=== PATIENT | female | born 1965 | race Caucasian/White ===

== ENCOUNTER → 2016-12-17 | Outpatient (REF) | payer BC ==
[~2016-12-17] MED LIST: AMIT10TA PO; AMLO10TA2 PO; ASPI325T PO; COZA50TA PO; CYCL10TA PO; HYDR-3910 PO; HYDR25TAB PO; LOPR1TAB6 PO; LOSA100T36 PO; PROZ10CA7 PO
[2016-12-17 19:13] LABS: FREE T4 1.02 NG/DL (0.76-1.46)
== END ==
LOC: M LAB REF 17:12
PROVIDERS: ATTEND Internal Medicine Nephrology
DX: N18.4 Chronic kidney disease, stage 4 (severe) (principal)

== ENCOUNTER → 2017-02-19 | Outpatient (CLI) | payer BC ==
[2017-02-19 14:02] LABS: BASO # 0.1 10^3/uL (0.0-0.2); BASO % 0.8 % (0.0-1.0); EOS # 0.5 10^3/uL (0.0-0.50); EOS % 5.6 % (0.0-3.0); IMMATURE GRANULOCYTE % 0.2 % (0-0); LYMPH # 1.4 10^3/uL (1.5-4.5); LYMPH % 16.7 % (24.0-44.0); MEAN CORPUSCULAR HEMOGLOBIN 32.6 pg (27.0-33.0); MEAN CORPUSCULAR HGB CONC 34.2 g/dl (32.0-36.5); MEAN CORPUSCULAR VOLUME 95.4 fl (80.0-96.0); MONO # 0.8 10^3/uL (0.0-0.8); MONO % 9.7 % (0.0-5.0); NEUTROPHILS # 5.5 10^3/uL (1.8-7.7); PLATELET COUNT, AUTOMATED 171 10^3/uL (150-450); RED CELL DISTRIBUTION WIDTH 11.5 % (11.5-14.5); WHITE BLOOD COUNT 8.3 10^3/uL (4.0-10.0)
[2017-02-19 14:11] LABS: ALBUMIN 3.8 GM/DL (3.2-5.2); CALCIUM LEVEL 9.1 MG/DL (8.5-10.1); CREATININE FOR GFR 2.29 MG/DL (0.55-1.02); GLOMERULAR FILTRATION RATE 23.8 (>51); MAGNESIUM LEVEL 2.1 MG/DL (1.8-2.4)
[2017-02-19 14:21] LABS: POTASSIUM SERUM 5.4 MEQ/L (3.5-5.1)
== END ==
LOC: M SMT 09:26
PROVIDERS: ATTEND Internal Medicine Nephrology
DX: N18.4 Chronic kidney disease, stage 4 (severe) (principal); N25.81 Secondary hyperparathyroidism of renal origin

== ENCOUNTER → 2017-07-19 | Outpatient (REF) | payer BC ==
[2017-07-19 14:39] LABS: FERRITIN 32 NG/ML (8-252); IRON (FE) 44 UG/DL (50-170); PERCENT SATURATION 14.1 % (13.2-45.0); TOTAL IRON BINDING CAPACITY 311 UG/DL (250-450)
== END ==
LOC: M LAB REF 13:23
DX: D64.9 Anemia, unspecified (principal)
CPT/HCPCS: 83550

== ENCOUNTER → 2017-09-15 | Outpatient (REF) | payer BC ==
[2017-09-15 18:52] LABS: CHOLESTEROL LEVEL 167 MG/DL (<200); CHOLESTEROL RISK RATIO 3.976 (<5); HDL CHOLESTEROL 42 MG/DL (>40); NON-HDL-C 125 MG/DL; TRIGLYCERIDES LEVEL 110 MG/DL (<150)
== END ==
LOC: M LAB REF 17:33
DX: N18.4 Chronic kidney disease, stage 4 (severe) (principal)
CPT/HCPCS: 80061

== ENCOUNTER 2017-10-13 11:09 | Inpatient (IN) | payer BC ==
[2017-10-13] MEDS ORDERED: LIDOCAINE 2% MDV 20 ML VIAL As Ordered (11:35)
[2017-10-13] MEDS ORDERED: HEPARIN 1,000 UNITS/ML 10ML VIAL (FOR RADIOLOGY& DIALYSIS ONLY) As Ordered (11:35)
[2017-10-13] MEDS ORDERED: ISOVUE-300 61% 50ML VIAL (Q9967) As Ordered (12:13)
[2017-10-13 12:56] LABS: HEMATOCRIT 25.7 % (36.0-47.0); HEMOGLOBIN 8.8 g/dl (12.0-15.5); MEAN CORPUSCULAR HEMOGLOBIN 29.9 pg (27.0-33.0); MEAN CORPUSCULAR HGB CONC 34.2 g/dl (32.0-36.5); MEAN CORPUSCULAR VOLUME 87.4 fl (80.0-96.0); PLATELET COUNT, AUTOMATED 126 10^3/uL (150-450); RED BLOOD COUNT 2.94 10^6/uL (4.00-5.40); RED CELL DISTRIBUTION WIDTH 12.7 % (11.5-14.5); WHITE BLOOD COUNT 9.4 10^3/uL (4.0-10.0)
[2017-10-13 13:07] LABS: INR 1.27; PROTHROMBIN TIME 16.2 SECONDS (12.4-14.5)
[2017-10-13 13:08] LABS: PARTIAL THROMBOPLASTIN TIME 49.1 SECONDS (26.8-37.9)
[2017-10-13 13:18] LABS: ALBUMIN 3.3 GM/DL (3.2-5.2); ALBUMIN/GLOBULIN RATIO 1.03 (1.00-1.93); ALKALINE PHOSPHATASE 61 U/L (45-117); ALT/SGPT 21 U/L (12-78); ANION GAP 15 MEQ/L (8-16); AST/SGOT 9 U/L (7-37); BILIRUBIN,TOTAL 0.4 MG/DL (0.2-1.0); BLOOD UREA NITROGEN 112 MG/DL (7-18); CALCIUM LEVEL 8.6 MG/DL (8.5-10.1); CARBON DIOXIDE LEVEL 20 MEQ/L (21-32); CHLORIDE LEVEL 88 MEQ/L (98-107); GLOMERULAR FILTRATION RATE 3.6 (>51); GLUCOSE, FASTING 99 MG/DL (70-100); SODIUM LEVEL 123 MEQ/L (136-145); TOTAL PROTEIN 6.5 GM/DL (6.4-8.2)
[2017-10-13 13:33] LABS: POTASSIUM SERUM 6.1 MEQ/L (3.5-5.1)
[2017-10-13] MEDS: DEXTROSE 50% 50 ML SYRINGE IV (14:25)
[2017-10-13] MEDS: HumuLIN R (REGULAR) INSULIN (NovoLIN R) **100U/ML** PER UNIT SC (14:25)
[2017-10-13] MEDS: NS 1,000 ML IV (14:26)
[2017-10-13] MEDS ORDERED: IPRATROPIUM 0.5MG/ALBUTEROL 2.5MG INH SOL UD 3ML (DUONEB)(J7620) NEB (14:30)
[2017-10-13 14:38] LABS: FREE THYROXINE INDEX 2.2 % (1.3-4.8); T UPTAKE 36 % (30-39); THYROID STIMULATING HORMONE 0.529 uIU/ML (0.358-3.740); THYROXINE (T4) 6.2 UG/DL (4.5-12.0)
[2017-10-13] MEDS: ALBUTEROL SULFATE 2.5 MG/0.5 ML INH NEB SOLN NEB (14:48)
[2017-10-13] MEDS: ASPIRIN ENTERIC 325 MG TAB PO (15:44)
[2017-10-13] MEDS: FLUoxetine 10 MG CAP PO (15:45)
[2017-10-13] MEDS: CLOPIDOGREL 75 MG TAB PO (15:45)
[2017-10-13] MEDS: amLODIPine 10 MG TAB PO (15:45)
[2017-10-13] MEDS: D5W 1,000 ML IV (16:00)
[2017-10-13 16:09] LABS: OSMOLALITY SERUM 290 MOSM/KG (275-295)
[2017-10-13] MEDS: CALCIUM GLUCONATE 1,000 MG in NS 100 ML IV (17:46)
[2017-10-13] MEDS: HEPARIN 1,000 UNITS/ML 10ML VIAL (FOR RADIOLOGY& DIALYSIS ONLY) XX (18:20)
[2017-10-13] MEDS: ADVAIR HFA 230/21MCG INHALER INH (19:56)
[2017-10-13] MEDS: IPRATROPIUM 0.5MG/ALBUTEROL 2.5MG INH SOL UD 3ML (DUONEB)(J7620) NEB (19:58)
[2017-10-13 20:30] LABS: ANION GAP 10 MEQ/L (8-16); BLOOD UREA NITROGEN 75 MG/DL (7-18); CALCIUM LEVEL 8.2 MG/DL (8.5-10.1); CARBON DIOXIDE LEVEL 21 MEQ/L (21-32); CHLORIDE LEVEL 95 MEQ/L (98-107); GLOMERULAR FILTRATION RATE 5.2 (>51); GLUCOSE, FASTING 79 MG/DL (70-100); POTASSIUM SERUM 4.5 MEQ/L (3.5-5.1); SODIUM LEVEL 126 MEQ/L (136-145)
[2017-10-13] MEDS: NORTRIPTYLINE 25 MG CAP PO (20:44)
[2017-10-13] MEDS: LABETALOL 200 MG TAB PO (20:45)
[2017-10-13] MEDS: **hydrALAZINE** 50 MG TAB PO (20:46)
[2017-10-13 20:56] LABS: CREATININE FOR GFR 8.62 MG/DL (0.55-1.30)
[2017-10-13] MEDS ORDERED: LABETALOL 100 MG TAB PO (21:00)
[2017-10-13 22:08] LABS: ABG BASE EXCESS -5.1 (-2.0-2.0); ABG HCO3 19.8 MEQ/L (22.0-26.0); ABG O2 SATURATION 92.3 % (95.0-99.0); ABG PARTIAL PRESSURE CO2 35.9 mmHg (35.0-45.0); ABG PARTIAL PRESSURE O2 65.9 mmHg (75.0-100.0); ABG STANDARD HCO3 20.1 MEQ/L (22.0-26.0); ABG TOTAL CO2 20.9 MEQ/L (22.0-29.0); ABG pH (ARTERIAL) 7.359 UNITS (7.350-7.450)
[2017-10-13 22:39] LABS: ANION GAP 14 MEQ/L (8-16); BLOOD UREA NITROGEN 74 MG/DL (7-18); CARBON DIOXIDE LEVEL 21 MEQ/L (21-32); CHLORIDE LEVEL 94 MEQ/L (98-107); GLUCOSE, FASTING 95 MG/DL (70-100); POTASSIUM SERUM 4.6 MEQ/L (3.5-5.1); SODIUM LEVEL 129 MEQ/L (136-145)
[2017-10-13 22:42] LABS: LACTIC ACID SEPSIS PROTOCOL 0.6 MMOL/L (0.4-2.0)
[2017-10-13 22:54] LABS: CREATININE FOR GFR 8.83 MG/DL (0.55-1.30)
[2017-10-13] MEDS: ACETAMINOPHEN TAB 650MG DOSE (2X325MG) PO (23:08)
[2017-10-14] MEDS: methylPREDNISolone INJ 40 MG/1 ML VIAL (J2920) IV (00:45)
[2017-10-14] MEDS: diphenhydrAMINE INJ 50MG/ML VIAL (J1200) IV (00:51)
[2017-10-14 01:22] LABS: ANION GAP 13 MEQ/L (8-16); BLOOD UREA NITROGEN 76 MG/DL (7-18); CARBON DIOXIDE LEVEL 21 MEQ/L (21-32); CHLORIDE LEVEL 95 MEQ/L (98-107); GLOMERULAR FILTRATION RATE 4.8 (>51); GLUCOSE, FASTING 97 MG/DL (70-100); POTASSIUM SERUM 4.8 MEQ/L (3.5-5.1); SODIUM LEVEL 129 MEQ/L (136-145)
[2017-10-14 01:45] LABS: CREATININE FOR GFR 9.23 MG/DL (0.55-1.30)
[2017-10-14] MEDS: IPRATROPIUM 0.5MG/ALBUTEROL 2.5MG INH SOL UD 3ML (DUONEB)(J7620) NEB ×4 (01:53→19:43)
[2017-10-14] MEDS: MEROPENEM INJ 500 MG in APPROPRIATE DILUENT 1 EA IV ×2 (04:33→17:23)
[2017-10-14] MEDS: VANCOMYCIN HCL 1,000 MG, VIAL MATE ADAPTER 1 EACH in D5W 250 ML IV (05:11)
[2017-10-14 05:31] LABS: HEMATOCRIT 25.3 % (36.0-47.0); HEMOGLOBIN 8.5 g/dl (12.0-15.5); MEAN CORPUSCULAR HEMOGLOBIN 29.7 pg (27.0-33.0); MEAN CORPUSCULAR HGB CONC 33.6 g/dl (32.0-36.5); MEAN CORPUSCULAR VOLUME 88.5 fl (80.0-96.0); PLATELET COUNT, AUTOMATED 113 10^3/uL (150-450); RED BLOOD COUNT 2.86 10^6/uL (4.00-5.40); RED CELL DISTRIBUTION WIDTH 12.7 % (11.5-14.5); WHITE BLOOD COUNT 8.4 10^3/uL (4.0-10.0)
[2017-10-14 05:56] LABS: ALBUMIN 3.1 GM/DL (3.2-5.2); ALBUMIN/GLOBULIN RATIO 1.03 (1.00-1.93); ALKALINE PHOSPHATASE 58 U/L (45-117); ALT/SGPT 33 U/L (12-78); ANION GAP 16 MEQ/L (8-16); AST/SGOT 32 U/L (7-37); BILIRUBIN,TOTAL 0.5 MG/DL (0.2-1.0); BLOOD UREA NITROGEN 77 MG/DL (7-18); CALCIUM LEVEL 7.8 MG/DL (8.5-10.1); CARBON DIOXIDE LEVEL 18 MEQ/L (21-32); CHLORIDE LEVEL 94 MEQ/L (98-107); GLOMERULAR FILTRATION RATE 4.7 (>51); GLUCOSE, FASTING 97 MG/DL (70-100); MAGNESIUM LEVEL 2.2 MG/DL (1.8-2.4); SODIUM LEVEL 128 MEQ/L (136-145); TOTAL PROTEIN 6.1 GM/DL (6.4-8.2)
[2017-10-14 06:01] LABS: POTASSIUM SERUM 5.4 MEQ/L (3.5-5.1)
[2017-10-14 07:04] LABS: OSMOLALITY SERUM 285 MOSM/KG (275-295)
[2017-10-14] MEDS: FLUoxetine 10 MG CAP PO (08:35)
[2017-10-14] MEDS: amLODIPine 10 MG TAB PO (08:35)
[2017-10-14] MEDS: CLOPIDOGREL 75 MG TAB PO (08:36)
[2017-10-14] MEDS: ASPIRIN ENTERIC 325 MG TAB PO (08:36)
[2017-10-14] MEDS: **hydrALAZINE** 50 MG TAB PO ×2 (08:36→20:32)
[2017-10-14] MEDS: ADVAIR HFA 230/21MCG INHALER INH ×2 (08:47→19:44)
[2017-10-14] MEDS: LABETALOL 200 MG TAB PO ×2 (09:33→20:33)
[2017-10-14] MEDS: HEPARIN 1,000 UNITS/ML 10ML VIAL (FOR RADIOLOGY& DIALYSIS ONLY) XX (12:15)
[2017-10-14] MEDS: **VANCO AFTER HD** MISC XX (16:00)
[2017-10-14] MEDS: ACETAMINOPHEN TAB 650MG DOSE (2X325MG) PO (16:21)
[2017-10-14] MEDS: cloNIDine HCL 0.3 MG/24 HR PATCH TOP (20:59)
[2017-10-15] MEDS: IPRATROPIUM 0.5MG/ALBUTEROL 2.5MG INH SOL UD 3ML (DUONEB)(J7620) NEB ×4 (01:14→20:00)
[2017-10-15 05:11] LABS: HEMATOCRIT 24.5 % (36.0-47.0); HEMOGLOBIN 8.2 g/dl (12.0-15.5); MEAN CORPUSCULAR HEMOGLOBIN 29.4 pg (27.0-33.0); MEAN CORPUSCULAR HGB CONC 33.5 g/dl (32.0-36.5); MEAN CORPUSCULAR VOLUME 87.8 fl (80.0-96.0); PLATELET COUNT, AUTOMATED 123 10^3/uL (150-450); RED BLOOD COUNT 2.79 10^6/uL (4.00-5.40); RED CELL DISTRIBUTION WIDTH 12.9 % (11.5-14.5); WHITE BLOOD COUNT 11.1 10^3/uL (4.0-10.0)
[2017-10-15 05:14] LABS: ALBUMIN 2.9 GM/DL (3.2-5.2); ALBUMIN/GLOBULIN RATIO 0.97 (1.00-1.93); ALKALINE PHOSPHATASE 59 U/L (45-117); ALT/SGPT 32 U/L (12-78); ANION GAP 13 MEQ/L (8-16); AST/SGOT 23 U/L (7-37); BILIRUBIN,TOTAL 0.5 MG/DL (0.2-1.0); BLOOD UREA NITROGEN 51 MG/DL (7-18); CALCIUM LEVEL 7.7 MG/DL (8.5-10.1); CARBON DIOXIDE LEVEL 23 MEQ/L (21-32); CHLORIDE LEVEL 96 MEQ/L (98-107); CREATININE FOR GFR 7.23 MG/DL (0.55-1.30); GLOMERULAR FILTRATION RATE 6.3 (>51); GLUCOSE, FASTING 102 MG/DL (70-100); MAGNESIUM LEVEL 2.2 MG/DL (1.8-2.4); POTASSIUM SERUM 4.2 MEQ/L (3.5-5.1); SODIUM LEVEL 132 MEQ/L (136-145); TOTAL PROTEIN 5.9 GM/DL (6.4-8.2); VANCOMYCIN RANDOM 25.6 UG/ML
[2017-10-15 05:22] LABS: FERRITIN 72 NG/ML (8-252); IRON (FE) 18 UG/DL (50-170); PERCENT SATURATION 6.6 % (13.2-45.0); TOTAL IRON BINDING CAPACITY 273 UG/DL (250-450)
[2017-10-15] MEDS: ADVAIR HFA 230/21MCG INHALER INH ×2 (07:50→20:56)
[2017-10-15] MEDS: amLODIPine 10 MG TAB PO (08:00)
[2017-10-15] MEDS: CLOPIDOGREL 75 MG TAB PO (08:00)
[2017-10-15] MEDS: LABETALOL 200 MG TAB PO ×2 (08:01→21:01)
[2017-10-15] MEDS: ASPIRIN ENTERIC 325 MG TAB PO (08:01)
[2017-10-15] MEDS: **hydrALAZINE** 50 MG TAB PO ×2 (08:01→17:58)
[2017-10-15] MEDS: FLUoxetine 10 MG CAP PO (08:02)
[2017-10-15] MEDS: FUROSEMIDE 100 MG/10 ML VIAL (J1940) IV (09:30)
[2017-10-15 11:21] LABS: HEPATITIS B SURFACE ANTIGEN NEGATIVE (NEGATIVE)
[2017-10-15 11:50] LABS: HEPATITIS B CORE ANTIBODY IGM NEGATIVE (NEGATIVE); HEPATITIS C VIRUS ABY INDEX < 0.0 INDEX (<0.8)
[2017-10-15 11:59] LABS: HEPATITIS B SURFACE ANTIBODY NEGATIVE (POSITIVE)
[2017-10-15] MEDS: MEROPENEM INJ 500 MG in APPROPRIATE DILUENT 1 EA IV (17:31)
[2017-10-15] MEDS: **VANCO AFTER HD** MISC XX (18:32)
[2017-10-15] MEDS: VANCOMYCIN HCL 750 MG, VIAL MATE ADAPTER 1 EACH in D5W 250 ML IV (18:32)
[2017-10-15] MEDS: ACETAMINOPHEN TAB 650MG DOSE (2X325MG) PO (19:47)
[2017-10-15] MEDS ORDERED: IRON SUCROSE 100MG 5ML VIAL (J1756 PER 1MG) IV (23:15)
[2017-10-15] MEDS ORDERED: DARBEPOETIN 100 MCG/0.5 ML *DIALYSIS* SYRINGE (J0882) IV (23:15)
[2017-10-16] MEDS: IPRATROPIUM 0.5MG/ALBUTEROL 2.5MG INH SOL UD 3ML (DUONEB)(J7620) NEB ×4 (02:55→20:00)
[2017-10-16 05:04] LABS: HEMATOCRIT 24.6 % (36.0-47.0); HEMOGLOBIN 8.2 g/dl (12.0-15.5); MEAN CORPUSCULAR HEMOGLOBIN 29.4 pg (27.0-33.0); MEAN CORPUSCULAR HGB CONC 33.3 g/dl (32.0-36.5); MEAN CORPUSCULAR VOLUME 88.2 fl (80.0-96.0); PLATELET COUNT, AUTOMATED 128 10^3/uL (150-450); RED BLOOD COUNT 2.79 10^6/uL (4.00-5.40); RED CELL DISTRIBUTION WIDTH 12.9 % (11.5-14.5); WHITE BLOOD COUNT 12.1 10^3/uL (4.0-10.0)
[2017-10-16 05:25] LABS: ALBUMIN 2.7 GM/DL (3.2-5.2); ALBUMIN/GLOBULIN RATIO 0.84 (1.00-1.93); ALKALINE PHOSPHATASE 55 U/L (45-117); ALT/SGPT 30 U/L (12-78); ANION GAP 11 MEQ/L (8-16); AST/SGOT 17 U/L (7-37); BILIRUBIN,TOTAL 0.5 MG/DL (0.2-1.0); BLOOD UREA NITROGEN 32 MG/DL (7-18); CARBON DIOXIDE LEVEL 26 MEQ/L (21-32); CHLORIDE LEVEL 97 MEQ/L (98-107); CREATININE FOR GFR 5.21 MG/DL (0.55-1.30); GLOMERULAR FILTRATION RATE 9.2 (>51); GLUCOSE, FASTING 118 MG/DL (70-100); MAGNESIUM LEVEL 2.1 MG/DL (1.8-2.4); POTASSIUM SERUM 3.9 MEQ/L (3.5-5.1); SODIUM LEVEL 134 MEQ/L (136-145); TOTAL PROTEIN 5.9 GM/DL (6.4-8.2); VANCOMYCIN RANDOM 31.4 UG/ML
[2017-10-16] MEDS: **hydrALAZINE** 50 MG TAB PO ×3 (06:43→21:58)
[2017-10-16] MEDS: ADVAIR HFA 230/21MCG INHALER INH ×2 (07:48→20:57)
[2017-10-16] MEDS: amLODIPine 10 MG TAB PO (08:01)
[2017-10-16] MEDS: CLOPIDOGREL 75 MG TAB PO (08:01)
[2017-10-16] MEDS: FLUoxetine 10 MG CAP PO (08:01)
[2017-10-16] MEDS: ASPIRIN ENTERIC 325 MG TAB PO (08:01)
[2017-10-16] MEDS: LABETALOL 200 MG TAB PO ×2 (08:02→21:58)
[2017-10-16 08:06] LABS: HEPATITIS B CORE ANTIBODY IGG Negative (Negative)
[2017-10-16] MEDS ORDERED: ISOVUE-370 76% 100ML VIAL (Q9967) As Ordered (11:34)
[2017-10-16] MEDS: HEPARIN 1,000 UNITS/ML 10ML VIAL (FOR RADIOLOGY& DIALYSIS ONLY) IV (14:00)
[2017-10-16] MEDS: MEROPENEM INJ 500 MG in APPROPRIATE DILUENT 1 EA IV (18:00)
[2017-10-16] MEDS: ACETAMINOPHEN TAB 650MG DOSE (2X325MG) PO (19:14)
[2017-10-17] MEDS: IPRATROPIUM 0.5MG/ALBUTEROL 2.5MG INH SOL UD 3ML (DUONEB)(J7620) NEB ×4 (01:40→20:00)
[2017-10-17 06:14] LABS: HEMATOCRIT 25.1 % (36.0-47.0); HEMOGLOBIN 8.4 g/dl (12.0-15.5); MEAN CORPUSCULAR HEMOGLOBIN 30.1 pg (27.0-33.0); MEAN CORPUSCULAR HGB CONC 33.5 g/dl (32.0-36.5); PLATELET COUNT, AUTOMATED 126 10^3/uL (150-450); RED BLOOD COUNT 2.79 10^6/uL (4.00-5.40); RED CELL DISTRIBUTION WIDTH 12.9 % (11.5-14.5)
[2017-10-17] MEDS: amLODIPine 10 MG TAB PO (06:32)
[2017-10-17] MEDS: LABETALOL 200 MG TAB PO ×2 (06:32→20:54)
[2017-10-17] MEDS: **hydrALAZINE** 50 MG TAB PO ×3 (06:32→20:53)
[2017-10-17 06:42] LABS: ALBUMIN 2.7 GM/DL (3.2-5.2); ALBUMIN/GLOBULIN RATIO 0.93 (1.00-1.93); ALKALINE PHOSPHATASE 58 U/L (45-117); ALT/SGPT 28 U/L (12-78); ANION GAP 9 MEQ/L (8-16); AST/SGOT 15 U/L (7-37); BILIRUBIN,TOTAL 0.5 MG/DL (0.2-1.0); BLOOD UREA NITROGEN 22 MG/DL (7-18); CALCIUM LEVEL 8.5 MG/DL (8.5-10.1); CARBON DIOXIDE LEVEL 29 MEQ/L (21-32); CHLORIDE LEVEL 100 MEQ/L (98-107); CREATININE FOR GFR 3.38 MG/DL (0.55-1.30); GLOMERULAR FILTRATION RATE 15.2 (>51); GLUCOSE, FASTING 115 MG/DL (70-100); POTASSIUM SERUM 3.8 MEQ/L (3.5-5.1); SODIUM LEVEL 138 MEQ/L (136-145); TOTAL PROTEIN 5.6 GM/DL (6.4-8.2); VANCOMYCIN RANDOM 19.3 UG/ML
[2017-10-17] MEDS: ADVAIR HFA 230/21MCG INHALER INH ×2 (07:50→20:09)
[2017-10-17] MEDS: CLOPIDOGREL 75 MG TAB PO (08:33)
[2017-10-17] MEDS: ASPIRIN ENTERIC 325 MG TAB PO (08:33)
[2017-10-17] MEDS: FLUoxetine 10 MG CAP PO (08:33)
[2017-10-17] MEDS: VALSARTAN 80 MG TAB (DIOVAN) PO (10:24)
[2017-10-17] MEDS: **VANCO AFTER HD** MISC XX (15:46)
[2017-10-17] MEDS: MEROPENEM INJ 500 MG in APPROPRIATE DILUENT 1 EA IV (17:13)
[2017-10-18] MEDS: IPRATROPIUM 0.5MG/ALBUTEROL 2.5MG INH SOL UD 3ML (DUONEB)(J7620) NEB ×4 (02:00→20:00)
[2017-10-18 06:55] LABS: HEMATOCRIT 25.7 % (36.0-47.0); HEMOGLOBIN 8.5 g/dl (12.0-15.5); MEAN CORPUSCULAR HEMOGLOBIN 29.7 pg (27.0-33.0); MEAN CORPUSCULAR HGB CONC 33.1 g/dl (32.0-36.5); MEAN CORPUSCULAR VOLUME 89.9 fl (80.0-96.0); PLATELET COUNT, AUTOMATED 136 10^3/uL (150-450); RED BLOOD COUNT 2.86 10^6/uL (4.00-5.40); RED CELL DISTRIBUTION WIDTH 13.2 % (11.5-14.5); WHITE BLOOD COUNT 14.4 10^3/uL (4.0-10.0)
[2017-10-18 07:28] LABS: ALBUMIN 2.6 GM/DL (3.2-5.2); ALBUMIN/GLOBULIN RATIO 0.87 (1.00-1.93); ALKALINE PHOSPHATASE 58 U/L (45-117); ALT/SGPT 28 U/L (12-78); ANION GAP 8 MEQ/L (8-16); AST/SGOT 15 U/L (7-37); BILIRUBIN,TOTAL 0.5 MG/DL (0.2-1.0); BLOOD UREA NITROGEN 35 MG/DL (7-18); CALCIUM LEVEL 8.5 MG/DL (8.5-10.1); CARBON DIOXIDE LEVEL 27 MEQ/L (21-32); CHLORIDE LEVEL 101 MEQ/L (98-107); GLOMERULAR FILTRATION RATE 12.5 (>51); GLUCOSE, FASTING 106 MG/DL (70-100); MAGNESIUM LEVEL 1.8 MG/DL (1.8-2.4); POTASSIUM SERUM 3.8 MEQ/L (3.5-5.1); SODIUM LEVEL 136 MEQ/L (136-145); TOTAL PROTEIN 5.6 GM/DL (6.4-8.2)
[2017-10-18] MEDS: ADVAIR HFA 230/21MCG INHALER INH ×2 (07:42→21:40)
[2017-10-18] MEDS: LABETALOL 200 MG TAB PO ×2 (09:34→21:59)
[2017-10-18] MEDS: ASPIRIN ENTERIC 325 MG TAB PO (09:35)
[2017-10-18] MEDS: **hydrALAZINE** 50 MG TAB PO ×3 (09:35→22:00)
[2017-10-18] MEDS: FLUoxetine 10 MG CAP PO (09:35)
[2017-10-18] MEDS: amLODIPine 10 MG TAB PO (09:35)
[2017-10-18] MEDS: VALSARTAN 80 MG TAB (DIOVAN) PO (09:35)
[2017-10-18] MEDS: CLOPIDOGREL 75 MG TAB PO (09:35)
[2017-10-18] MEDS: **VANCO AFTER HD** MISC XX (11:12)
[2017-10-18] MEDS: MEROPENEM INJ 500 MG in APPROPRIATE DILUENT 1 EA IV (12:55)
[2017-10-19] MEDS: IPRATROPIUM 0.5MG/ALBUTEROL 2.5MG INH SOL UD 3ML (DUONEB)(J7620) NEB ×4 (02:00→19:52)
[2017-10-19] MEDS ORDERED: LIDOCAINE 2% MDV 20 ML VIAL As Ordered (06:22)
[2017-10-19] MEDS ORDERED: HEPARIN 1,000 UNITS/ML 10ML VIAL (FOR RADIOLOGY& DIALYSIS ONLY) As Ordered (06:22)
[2017-10-19 06:43] LABS: HEMATOCRIT 24.9 % (36.0-47.0); HEMOGLOBIN 8.4 g/dl (12.0-15.5); MEAN CORPUSCULAR HEMOGLOBIN 30.2 pg (27.0-33.0); MEAN CORPUSCULAR HGB CONC 33.7 g/dl (32.0-36.5); MEAN CORPUSCULAR VOLUME 89.6 fl (80.0-96.0); PLATELET COUNT, AUTOMATED 137 10^3/uL (150-450); RED BLOOD COUNT 2.78 10^6/uL (4.00-5.40); RED CELL DISTRIBUTION WIDTH 13.1 % (11.5-14.5); WHITE BLOOD COUNT 13.2 10^3/uL (4.0-10.0)
[2017-10-19 07:13] LABS: ALBUMIN 2.5 GM/DL (3.2-5.2); ALBUMIN/GLOBULIN RATIO 0.78 (1.00-1.93); ALKALINE PHOSPHATASE 59 U/L (45-117); ALT/SGPT 28 U/L (12-78); ANION GAP 10 MEQ/L (8-16); AST/SGOT 14 U/L (7-37); BILIRUBIN,TOTAL 0.5 MG/DL (0.2-1.0); BLOOD UREA NITROGEN 42 MG/DL (7-18); CALCIUM LEVEL 8.4 MG/DL (8.5-10.1); CARBON DIOXIDE LEVEL 27 MEQ/L (21-32); CHLORIDE LEVEL 98 MEQ/L (98-107); CREATININE FOR GFR 3.91 MG/DL (0.55-1.30); GLOMERULAR FILTRATION RATE 12.8 (>51); GLUCOSE, FASTING 104 MG/DL (70-100); MAGNESIUM LEVEL 1.6 MG/DL (1.8-2.4); POTASSIUM SERUM 3.8 MEQ/L (3.5-5.1); SODIUM LEVEL 135 MEQ/L (136-145); TOTAL PROTEIN 5.7 GM/DL (6.4-8.2)
[2017-10-19] MEDS ORDERED: ISOVUE-300 61% 50ML VIAL (Q9967) As Ordered (07:25)
[2017-10-19] MEDS ORDERED: MIDAZOLAM INJ 2 MG/2 ML VIAL (J2250) As Ordered (07:51)
[2017-10-19] MEDS ORDERED: fentaNYL 100 MCG/2 ML INJECTION (J3010) As Ordered (07:51)
[2017-10-19] MEDS: ADVAIR HFA 230/21MCG INHALER INH ×2 (08:00→19:53)
[2017-10-19] MEDS: LABETALOL 200 MG TAB PO ×2 (09:58→21:44)
[2017-10-19] MEDS: FLUoxetine 10 MG CAP PO (09:59)
[2017-10-19] MEDS: amLODIPine 10 MG TAB PO (09:59)
[2017-10-19] MEDS: ASPIRIN ENTERIC 325 MG TAB PO (09:59)
[2017-10-19] MEDS: CLOPIDOGREL 75 MG TAB PO (09:59)
[2017-10-19] MEDS: **hydrALAZINE** 50 MG TAB PO ×3 (10:00→21:53)
[2017-10-19] MEDS: VALSARTAN 80 MG TAB (DIOVAN) PO (10:00)
[2017-10-19] MEDS: HEPARIN 1,000 UNITS/ML 10ML VIAL (FOR RADIOLOGY& DIALYSIS ONLY) XX (10:03)
[2017-10-19] MEDS: HEPARIN 1,000 UNITS/ML 10ML VIAL (FOR RADIOLOGY& DIALYSIS ONLY) IV (10:03)
[2017-10-19] MEDS: VANCOMYCIN HCL 750 MG, VIAL MATE ADAPTER 1 EACH in D5W 250 ML IV (17:28)
[2017-10-19] MEDS: **VANCO AFTER HD** MISC XX (17:29)
[2017-10-19] MEDS: MEROPENEM INJ 500 MG in APPROPRIATE DILUENT 1 EA IV (19:33)
[2017-10-19 22:18] LABS: HEMATOCRIT 19.4 % (36.0-47.0); MEAN CORPUSCULAR HEMOGLOBIN 29.6 pg (27.0-33.0); MEAN CORPUSCULAR HGB CONC 32.5 g/dl (32.0-36.5); MEAN CORPUSCULAR VOLUME 91.1 fl (80.0-96.0); PLATELET COUNT, AUTOMATED 132 10^3/uL (150-450); RED BLOOD COUNT 2.13 10^6/uL (4.00-5.40); RED CELL DISTRIBUTION WIDTH 13.2 % (11.5-14.5); WHITE BLOOD COUNT 13.6 10^3/uL (4.0-10.0)
[2017-10-19 22:21] LABS: HEMOGLOBIN 6.3 g/dl (12.0-15.5)
[2017-10-19] MEDS: NS 500 ML IV (23:00)
[2017-10-19] MEDS: PANTOPRAZOLE 40MG INJ (PROTONIX) (C9113) IV (23:00)
[2017-10-19] MEDS: ONDANSETRON 4MG/2ML VIAL (J2405) IV (23:04)
[2017-10-19] MEDS: NS 1,000 ML IV (23:40)
[2017-10-20] MEDS: ACETAMINOPHEN TAB 650MG DOSE (2X325MG) PO ×2 (00:13→20:31)
[2017-10-20 01:09] LABS: IMMEDIATE SPIN CROSSMATCH 1 2
[2017-10-20] MEDS: IPRATROPIUM 0.5MG/ALBUTEROL 2.5MG INH SOL UD 3ML (DUONEB)(J7620) NEB ×4 (02:37→20:00)
[2017-10-20] MEDS: diphenhydrAMINE 50 MG CAP PO (02:38)
[2017-10-20] MEDS ORDERED: HEPARIN SOD (PORCINE) 5000 UNITS/ML VIAL IV ×2 (03:15)
[2017-10-20] MEDS: HEPARIN 1,000 UNITS/ML 10ML VIAL (FOR RADIOLOGY& DIALYSIS ONLY) IV (04:12)
[2017-10-20] MEDS: **hydrALAZINE** 50 MG TAB PO ×3 (04:40→20:29)
[2017-10-20] MEDS: amLODIPine 10 MG TAB PO ×2 (04:40→21:00)
[2017-10-20] MEDS: VALSARTAN 80 MG TAB (DIOVAN) PO (04:41)
[2017-10-20 05:50] LABS: HEMATOCRIT 23.3 % (36.0-47.0); MEAN CORPUSCULAR HEMOGLOBIN 30.4 pg (27.0-33.0); MEAN CORPUSCULAR HGB CONC 34.3 g/dl (32.0-36.5); MEAN CORPUSCULAR VOLUME 88.6 fl (80.0-96.0); PLATELET COUNT, AUTOMATED 120 10^3/uL (150-450); RED BLOOD COUNT 2.63 10^6/uL (4.00-5.40); RED CELL DISTRIBUTION WIDTH 14.2 % (11.5-14.5); WHITE BLOOD COUNT 13.8 10^3/uL (4.0-10.0)
[2017-10-20 06:08] LABS: ALBUMIN/GLOBULIN RATIO 0.77 (1.00-1.93); ALKALINE PHOSPHATASE 43 U/L (45-117); ALT/SGPT 19 U/L (12-78); ANION GAP 7 MEQ/L (8-16); AST/SGOT 20 U/L (7-37); BILIRUBIN,TOTAL 0.5 MG/DL (0.2-1.0); BLOOD UREA NITROGEN 34 MG/DL (7-18); CALCIUM LEVEL 7.4 MG/DL (8.5-10.1); CARBON DIOXIDE LEVEL 28 MEQ/L (21-32); CHLORIDE LEVEL 105 MEQ/L (98-107); CREATININE FOR GFR 2.27 MG/DL (0.55-1.30); GLOMERULAR FILTRATION RATE 24.1 (>51); GLUCOSE, FASTING 104 MG/DL (70-100); MAGNESIUM LEVEL 1.6 MG/DL (1.8-2.4); POTASSIUM SERUM 4.4 MEQ/L (3.5-5.1); SODIUM LEVEL 140 MEQ/L (136-145); TOTAL PROTEIN 4.6 GM/DL (6.4-8.2)
[2017-10-20] MEDS ORDERED: diphenhydrAMINE 50 MG CAP PO (07:30)
[2017-10-20] MEDS ORDERED: D5W/0.9% SODIUM CHLORIDE 1,000 ML IV (09:09)
[2017-10-20] MEDS: LABETALOL 200 MG TAB PO ×2 (09:37→20:30)
[2017-10-20] MEDS: FLUoxetine 10 MG CAP PO (09:37)
[2017-10-20] MEDS: ADVAIR HFA 230/21MCG INHALER INH ×2 (12:51→20:22)
[2017-10-20 13:43] LABS: HEMATOCRIT 22.3 % (36.0-47.0); HEMOGLOBIN 7.5 g/dl (12.0-15.5); MEAN CORPUSCULAR HEMOGLOBIN 29.8 pg (27.0-33.0); MEAN CORPUSCULAR HGB CONC 33.6 g/dl (32.0-36.5); MEAN CORPUSCULAR VOLUME 88.5 fl (80.0-96.0); PLATELET COUNT, AUTOMATED 124 10^3/uL (150-450); RED BLOOD COUNT 2.52 10^6/uL (4.00-5.40); RED CELL DISTRIBUTION WIDTH 14.4 % (11.5-14.5); WHITE BLOOD COUNT 16.3 10^3/uL (4.0-10.0)
[2017-10-20] MEDS: PANTOPRAZOLE 40MG INJ (PROTONIX) (C9113) IV ×2 (13:59→20:31)
[2017-10-20] MEDS: SUCRALFATE 1 GM TAB PO ×3 (13:59→20:29)
[2017-10-20] MEDS: SODIUM CHLORIDE 0.9% 1000 ML IV (14:00)
[2017-10-20] MEDS: **VANCO AFTER HD** MISC XX (16:00)
[2017-10-20] MEDS: MEROPENEM INJ 500 MG in APPROPRIATE DILUENT 1 EA IV (17:53)
[2017-10-20 20:30] LABS: IMMEDIATE SPIN CROSSMATCH 1 1
[2017-10-21] MEDS: IPRATROPIUM 0.5MG/ALBUTEROL 2.5MG INH SOL UD 3ML (DUONEB)(J7620) NEB ×4 (02:12→20:00)
[2017-10-21 05:18] LABS: BASO % 0.2 % (0.0-1.0); EOS # 0.4 10^3/uL (0.0-0.50); EOS % 2.5 % (0.0-3.0); HEMOGLOBIN 8.4 g/dl (12.0-15.5); IMMATURE GRANULOCYTE % 1.2 % (0-3.0); LYMPH # 1.6 10^3/uL (1.5-4.5); LYMPH % 11.3 % (24.0-44.0); MEAN CORPUSCULAR HEMOGLOBIN 30.2 pg (27.0-33.0); MEAN CORPUSCULAR HGB CONC 33.6 g/dl (32.0-36.5); MEAN CORPUSCULAR VOLUME 89.9 fl (80.0-96.0); MONO # 1.1 10^3/uL (0.0-0.8); MONO % 7.7 % (0.0-5.0); NEUTROPHILS # 10.7 10^3/uL (1.8-7.7); NEUTROPHILS % 77.1 % (36.0-66.0); PLATELET COUNT, AUTOMATED 118 10^3/uL (150-450); RED BLOOD COUNT 2.78 10^6/uL (4.00-5.40); RED CELL DISTRIBUTION WIDTH 14.1 % (11.5-14.5); WHITE BLOOD COUNT 13.8 10^3/uL (4.0-10.0)
[2017-10-21 05:40] LABS: ANION GAP 12 MEQ/L (8-16); BLOOD UREA NITROGEN 46 MG/DL (7-18); CALCIUM LEVEL 7.9 MG/DL (8.5-10.1); CARBON DIOXIDE LEVEL 25 MEQ/L (21-32); CHLORIDE LEVEL 104 MEQ/L (98-107); CREATININE FOR GFR 2.91 MG/DL (0.55-1.30); GLOMERULAR FILTRATION RATE 18.1 (>51); GLUCOSE, FASTING 96 MG/DL (70-100); SODIUM LEVEL 141 MEQ/L (136-145)
[2017-10-21] MEDS: ADVAIR HFA 230/21MCG INHALER INH ×2 (08:00→19:49)
[2017-10-21] MEDS ORDERED: PROPOFOL 200 MG/20 ML VIAL As Ordered (12:18)
[2017-10-21] MEDS ORDERED: LIDOCAINE 2% INJ 100 MG/5 ML SDV (FOR ANES.) As Ordered (12:18)
[2017-10-21] MEDS ORDERED: fentaNYL 100 MCG/2 ML INJECTION (J3010) As Ordered (12:19)
[2017-10-21] MEDS: VALSARTAN 80 MG TAB (DIOVAN) PO (14:12)
[2017-10-21] MEDS: LABETALOL 200 MG TAB PO ×2 (14:13→21:16)
[2017-10-21] MEDS: amLODIPine 10 MG TAB PO (14:14)
[2017-10-21] MEDS: PANTOPRAZOLE 40MG INJ (PROTONIX) (C9113) IV ×2 (14:14→21:18)
[2017-10-21] MEDS: **hydrALAZINE** 50 MG TAB PO ×3 (14:14→21:18)
[2017-10-21] MEDS: SUCRALFATE 1 GM TAB PO ×4 (14:14→21:17)
[2017-10-21] MEDS: HEPARIN 1,000 UNITS/ML 10ML VIAL (FOR RADIOLOGY& DIALYSIS ONLY) XX (14:29)
[2017-10-21] MEDS ORDERED: ISOVUE-370 76% 100ML VIAL (Q9967) As Ordered (15:42)
[2017-10-21] MEDS: MINOXIDIL 2.5 MG TAB PO ×2 (16:08→21:16)
[2017-10-21] MEDS: FLUoxetine 10 MG CAP PO (16:09)
[2017-10-21 17:13] LABS: C REACTIVE PROTEIN QUANTITATIV 3.21 MG/DL (0.00-0.30)
[2017-10-21 17:17] LABS: BASO # 0.1 10^3/uL (0.0-0.2); BASO % 0.4 % (0.0-1.0); EOS # 0.3 10^3/uL (0.0-0.50); HEMATOCRIT 25.6 % (36.0-47.0); HEMOGLOBIN 8.6 g/dl (12.0-15.5); IMMATURE GRANULOCYTE % 1.4 % (0-3.0); LYMPH # 1.3 10^3/uL (1.5-4.5); LYMPH % 10.5 % (24.0-44.0); MEAN CORPUSCULAR HEMOGLOBIN 30.3 pg (27.0-33.0); MEAN CORPUSCULAR HGB CONC 33.6 g/dl (32.0-36.5); MEAN CORPUSCULAR VOLUME 90.1 fl (80.0-96.0); MONO # 1.1 10^3/uL (0.0-0.8); MONO % 8.4 % (0.0-5.0); NEUTROPHILS # 9.9 10^3/uL (1.8-7.7); NEUTROPHILS % 77.3 % (36.0-66.0); PLATELET COUNT, AUTOMATED 106 10^3/uL (150-450); RED BLOOD COUNT 2.84 10^6/uL (4.00-5.40); RED CELL DISTRIBUTION WIDTH 14.1 % (11.5-14.5); WHITE BLOOD COUNT 12.8 10^3/uL (4.0-10.0)
[2017-10-21] MEDS: MEROPENEM INJ 500 MG in APPROPRIATE DILUENT 1 EA IV (17:18)
[2017-10-21 20:53] LABS: ERYTHROCYTE SEDIMENTATION RATE 9 mm/hr (0-30)
[2017-10-21] MEDS: cloNIDine HCL 0.3 MG/24 HR PATCH TOP (21:15)
[2017-10-22] MEDS: IPRATROPIUM 0.5MG/ALBUTEROL 2.5MG INH SOL UD 3ML (DUONEB)(J7620) NEB ×4 (02:39→20:00)
[2017-10-22 05:13] LABS: BASO % 0.2 % (0.0-1.0); EOS # 0.3 10^3/uL (0.0-0.50); EOS % 2.3 % (0.0-3.0); HEMATOCRIT 24.5 % (36.0-47.0); HEMOGLOBIN 8.1 g/dl (12.0-15.5); LYMPH # 1.1 10^3/uL (1.5-4.5); LYMPH % 8.2 % (24.0-44.0); MEAN CORPUSCULAR HGB CONC 33.1 g/dl (32.0-36.5); MEAN CORPUSCULAR VOLUME 90.7 fl (80.0-96.0); MONO # 1.3 10^3/uL (0.0-0.8); NEUTROPHILS # 10.1 10^3/uL (1.8-7.7); NEUTROPHILS % 78.3 % (36.0-66.0); PLATELET COUNT, AUTOMATED 117 10^3/uL (150-450); RED CELL DISTRIBUTION WIDTH 14.2 % (11.5-14.5); WHITE BLOOD COUNT 12.9 10^3/uL (4.0-10.0)
[2017-10-22 05:32] LABS: ANION GAP 8 MEQ/L (8-16); BLOOD UREA NITROGEN 23 MG/DL (7-18); CALCIUM LEVEL 7.8 MG/DL (8.5-10.1); CARBON DIOXIDE LEVEL 27 MEQ/L (21-32); CHLORIDE LEVEL 103 MEQ/L (98-107); CREATININE FOR GFR 2.47 MG/DL (0.55-1.30); GLOMERULAR FILTRATION RATE 21.8 (>51); GLUCOSE, FASTING 113 MG/DL (70-100); POTASSIUM SERUM 3.7 MEQ/L (3.5-5.1); SODIUM LEVEL 138 MEQ/L (136-145)
[2017-10-22] MEDS: ADVAIR HFA 230/21MCG INHALER INH ×2 (07:33→20:45)
[2017-10-22] MEDS: PANTOPRAZOLE 40MG INJ (PROTONIX) (C9113) IV ×2 (08:38→20:16)
[2017-10-22] MEDS: SUCRALFATE 1 GM TAB PO ×4 (08:39→20:18)
[2017-10-22] MEDS: FLUoxetine 10 MG CAP PO (08:39)
[2017-10-22] MEDS: **hydrALAZINE** 50 MG TAB PO ×3 (08:40→20:17)
[2017-10-22] MEDS: VALSARTAN 80 MG TAB (DIOVAN) PO (08:40)
[2017-10-22] MEDS: MINOXIDIL 2.5 MG TAB PO ×2 (08:40→20:18)
[2017-10-22] MEDS: LABETALOL 200 MG TAB PO ×2 (08:41→20:17)
[2017-10-22] MEDS: amLODIPine 10 MG TAB PO (08:41)
[2017-10-22] MEDS: ONDANSETRON 4MG/2ML VIAL (J2405) IV ×2 (08:51→19:36)
[2017-10-23] MEDS: IPRATROPIUM 0.5MG/ALBUTEROL 2.5MG INH SOL UD 3ML (DUONEB)(J7620) NEB ×4 (01:48→20:00)
[2017-10-23 04:48] LABS: BASO % 0.3 % (0.0-1.0); EOS # 0.3 10^3/uL (0.0-0.50); HEMATOCRIT 24.4 % (36.0-47.0); LYMPH # 1.4 10^3/uL (1.5-4.5); MEAN CORPUSCULAR HEMOGLOBIN 30.7 pg (27.0-33.0); MEAN CORPUSCULAR HGB CONC 32.8 g/dl (32.0-36.5); MEAN CORPUSCULAR VOLUME 93.5 fl (80.0-96.0); MONO # 1.3 10^3/uL (0.0-0.8); MONO % 9.9 % (0.0-5.0); NEUTROPHILS # 9.6 10^3/uL (1.8-7.7); NEUTROPHILS % 75.8 % (36.0-66.0); PLATELET COUNT, AUTOMATED 135 10^3/uL (150-450); RED BLOOD COUNT 2.61 10^6/uL (4.00-5.40); RED CELL DISTRIBUTION WIDTH 14.6 % (11.5-14.5); WHITE BLOOD COUNT 12.7 10^3/uL (4.0-10.0)
[2017-10-23 04:59] LABS: ANION GAP 8 MEQ/L (8-16); BLOOD UREA NITROGEN 13 MG/DL (7-18); CALCIUM LEVEL 7.8 MG/DL (8.5-10.1); CARBON DIOXIDE LEVEL 29 MEQ/L (21-32); CHLORIDE LEVEL 104 MEQ/L (98-107); CREATININE FOR GFR 2.44 MG/DL (0.55-1.30); GLOMERULAR FILTRATION RATE 22.1 (>51); GLUCOSE, FASTING 113 MG/DL (70-100); POTASSIUM SERUM 3.6 MEQ/L (3.5-5.1); SODIUM LEVEL 141 MEQ/L (136-145)
[2017-10-23 04:59] LABS: C REACTIVE PROTEIN QUANTITATIV 2.72 MG/DL (0.00-0.30)
[2017-10-23 05:06] LABS: ERYTHROCYTE SEDIMENTATION RATE 23 mm/hr (0-30)
[2017-10-23] MEDS: ADVAIR HFA 230/21MCG INHALER INH ×2 (08:37→20:25)
[2017-10-23] MEDS: FLUoxetine 10 MG CAP PO (08:59)
[2017-10-23] MEDS: VALSARTAN 80 MG TAB (DIOVAN) PO (08:59)
[2017-10-23] MEDS: LABETALOL 200 MG TAB PO ×2 (08:59→20:38)
[2017-10-23] MEDS: SUCRALFATE 1 GM TAB PO ×4 (09:00→20:38)
[2017-10-23] MEDS: **hydrALAZINE** 50 MG TAB PO ×3 (09:00→20:39)
[2017-10-23] MEDS: PANTOPRAZOLE 40MG INJ (PROTONIX) (C9113) IV ×2 (09:00→20:39)
[2017-10-23] MEDS: MINOXIDIL 2.5 MG TAB PO ×2 (09:00→20:38)
[2017-10-23] MEDS: amLODIPine 10 MG TAB PO (09:00)
[2017-10-23] MEDS: SLF 3 ML SYR IV ×3 (09:01→20:39)
[2017-10-23] MEDS ORDERED: LIDOCAINE 2% INJ 100 MG/5 ML SDV (FOR ANES.) As Ordered (13:18)
[2017-10-23] MEDS ORDERED: PROPOFOL 200 MG/20 ML VIAL As Ordered (13:18)
[2017-10-23] MEDS: CETACAINE SPRAY 5GM As Ordered (13:25)
[2017-10-23] MEDS: LR 1,000 ML IV (14:00)
[2017-10-23] MEDS ORDERED: ONDANSETRON 4MG/2ML VIAL (J2405) IV (14:00)
[2017-10-24] MEDS: IPRATROPIUM 0.5MG/ALBUTEROL 2.5MG INH SOL UD 3ML (DUONEB)(J7620) NEB ×4 (01:47→20:00)
[2017-10-24 05:16] LABS: BASO % 0.4 % (0.0-1.0); EOS # 0.3 10^3/uL (0.0-0.50); EOS % 2.3 % (0.0-3.0); HEMATOCRIT 23.5 % (36.0-47.0); HEMOGLOBIN 7.6 g/dl (12.0-15.5); IMMATURE GRANULOCYTE % 0.6 % (0-3.0); LYMPH # 1.1 10^3/uL (1.5-4.5); MEAN CORPUSCULAR HEMOGLOBIN 30.3 pg (27.0-33.0); MEAN CORPUSCULAR HGB CONC 32.3 g/dl (32.0-36.5); MEAN CORPUSCULAR VOLUME 93.6 fl (80.0-96.0); MONO # 1.1 10^3/uL (0.0-0.8); MONO % 9.9 % (0.0-5.0); NEUTROPHILS # 8.8 10^3/uL (1.8-7.7); NEUTROPHILS % 76.8 % (36.0-66.0); PLATELET COUNT, AUTOMATED 128 10^3/uL (150-450); RED BLOOD COUNT 2.51 10^6/uL (4.00-5.40); RED CELL DISTRIBUTION WIDTH 14.8 % (11.5-14.5); WHITE BLOOD COUNT 11.4 10^3/uL (4.0-10.0)
[2017-10-24] MEDS: SLF 3 ML SYR IV ×3 (05:28→20:36)
[2017-10-24 05:33] LABS: ANION GAP 8 MEQ/L (8-16); BLOOD UREA NITROGEN 21 MG/DL (7-18); C REACTIVE PROTEIN QUANTITATIV 2.29 MG/DL (0.00-0.30); CALCIUM LEVEL 7.9 MG/DL (8.5-10.1); CARBON DIOXIDE LEVEL 27 MEQ/L (21-32); CHLORIDE LEVEL 102 MEQ/L (98-107); CREATININE FOR GFR 3.79 MG/DL (0.55-1.30); GLOMERULAR FILTRATION RATE 13.3 (>51); GLUCOSE, FASTING 99 MG/DL (70-100); POTASSIUM SERUM 3.6 MEQ/L (3.5-5.1); SODIUM LEVEL 137 MEQ/L (136-145)
[2017-10-24 05:44] LABS: ERYTHROCYTE SEDIMENTATION RATE 27 mm/hr (0-30)
[2017-10-24] MEDS: MINOXIDIL 2.5 MG TAB PO ×2 (09:06→20:36)
[2017-10-24] MEDS: LABETALOL 200 MG TAB PO ×2 (09:06→20:35)
[2017-10-24] MEDS: VALSARTAN 80 MG TAB (DIOVAN) PO (09:07)
[2017-10-24] MEDS: **hydrALAZINE** 50 MG TAB PO ×3 (09:07→20:35)
[2017-10-24] MEDS: FLUoxetine 10 MG CAP PO (09:08)
[2017-10-24] MEDS: amLODIPine 10 MG TAB PO (09:08)
[2017-10-24] MEDS: SUCRALFATE 1 GM TAB PO ×4 (09:08→20:36)
[2017-10-24] MEDS: PANTOPRAZOLE 40MG TAB (PROTONIX) PO ×2 (09:08→20:35)
[2017-10-24] MEDS: ADVAIR HFA 230/21MCG INHALER INH ×2 (09:28→21:03)
[2017-10-24 13:16] LABS: IMMEDIATE SPIN CROSSMATCH 1 1
[2017-10-25] MEDS: IPRATROPIUM 0.5MG/ALBUTEROL 2.5MG INH SOL UD 3ML (DUONEB)(J7620) NEB ×3 (02:30→13:29)
[2017-10-25 05:50] LABS: BASO % 0.4 % (0.0-1.0); EOS # 0.2 10^3/uL (0.0-0.50); EOS % 2.3 % (0.0-3.0); HEMATOCRIT 25.1 % (36.0-47.0); HEMOGLOBIN 8.7 g/dl (12.0-15.5); IMMATURE GRANULOCYTE % 0.8 % (0-3.0); LYMPH % 9.6 % (24.0-44.0); MEAN CORPUSCULAR HEMOGLOBIN 31.3 pg (27.0-33.0); MEAN CORPUSCULAR HGB CONC 34.7 g/dl (32.0-36.5); MEAN CORPUSCULAR VOLUME 90.3 fl (80.0-96.0); MONO % 9.9 % (0.0-5.0); PLATELET COUNT, AUTOMATED 142 10^3/uL (150-450); RED BLOOD COUNT 2.78 10^6/uL (4.00-5.40); RED CELL DISTRIBUTION WIDTH 15.7 % (11.5-14.5); WHITE BLOOD COUNT 10.4 10^3/uL (4.0-10.0)
[2017-10-25 05:53] LABS: ANION GAP 8 MEQ/L (8-16); BLOOD UREA NITROGEN 29 MG/DL (7-18); CALCIUM LEVEL 7.9 MG/DL (8.5-10.1); CARBON DIOXIDE LEVEL 26 MEQ/L (21-32); CHLORIDE LEVEL 100 MEQ/L (98-107); CREATININE FOR GFR 5.23 MG/DL (0.55-1.30); GLOMERULAR FILTRATION RATE 9.2 (>51); GLUCOSE, FASTING 97 MG/DL (70-100); POTASSIUM SERUM 3.6 MEQ/L (3.5-5.1); SODIUM LEVEL 134 MEQ/L (136-145)
[2017-10-25] MEDS: SLF 3 ML SYR IV (06:20)
[2017-10-25] MEDS: SUCRALFATE 1 GM TAB PO ×2 (06:21→12:38)
[2017-10-25] MEDS: FLUoxetine 10 MG CAP PO (06:21)
[2017-10-25] MEDS: PANTOPRAZOLE 40MG TAB (PROTONIX) PO (06:21)
[2017-10-25] MEDS: ADVAIR HFA 230/21MCG INHALER INH (08:00)
[2017-10-25] MEDS: HEPARIN 1,000 UNITS/ML 10ML VIAL (FOR RADIOLOGY& DIALYSIS ONLY) XX (09:30)
[2017-10-25] MEDS: MINOXIDIL 2.5 MG TAB PO (12:13)
[2017-10-25] MEDS: **hydrALAZINE** 50 MG TAB PO (12:14)
[2017-10-25] MEDS: VALSARTAN 80 MG TAB (DIOVAN) PO (12:15)
[2017-10-25] MEDS: amLODIPine 10 MG TAB PO (12:15)
[2017-10-25] MEDS: LABETALOL 200 MG TAB PO (12:16)
[2017-10-26 00:07] LABS: BODY FLUID CULTURE Not Indicated (.); LEGIONELLA ANTIGEN URINE Negative (Negative); ORGANISM ID Not indicated. (.); SPECIMEN SOURCE Urine (.); URINE STREP PNEUMONIAE ANTIGEN Negative (Negative)
== END 2017-10-25 13:53 | disposition home or self-care (01) | DRG 950 ==
LOC: M MSPAV 10-16 17:17 → M ICU 10-19 22:20 → M PCU 10-22 17:28 → M ED 11:09 → M ED INP 13:57 → M ICU 15:02
PROC: 02HV33Z Insertion of Infusion Device into Superior Vena Cava, Percutaneous Approach (ICD-10-PCS; principal; 2017-10-21 12:44)
PROC: 0JH63XZ Insertion of Tunneled Vascular Access Device into Chest Subcutaneous Tissue and Fascia, Percutaneous Approach (ICD-10-PCS; 2017-10-21 12:44)
PROC: 5A1D70Z Performance of Urinary Filtration, Intermittent, Less than 6 Hours Per Day (ICD-10-PCS; 2017-10-21 12:44)
PROC: 02PY33Z Removal of Infusion Device from Great Vessel, Percutaneous Approach (ICD-10-PCS; 2017-10-21 12:44)
PROC: 0JPT0XZ Removal of Tunneled Vascular Access Device from Trunk Subcutaneous Tissue and Fascia, Open Approach (ICD-10-PCS; 2017-10-21 12:44)
PROC: 30233N1 Transfusion of Nonautologous Red Blood Cells into Peripheral Vein, Percutaneous Approach (ICD-10-PCS; 2017-10-21 12:44)
PROC: 0DJ08ZZ Inspection of Upper Intestinal Tract, Via Natural or Artificial Opening Endoscopic (ICD-10-PCS; 2017-10-21 12:44)
PROC: B246ZZ4 Ultrasonography of Right and Left Heart, Transesophageal (ICD-10-PCS; 2017-10-21 12:44)
PROC: 02HV33Z Insertion of Infusion Device into Superior Vena Cava, Percutaneous Approach (ICD-10-PCS; 2017-10-21 12:44)
PROC: 0JH63XZ Insertion of Tunneled Vascular Access Device into Chest Subcutaneous Tissue and Fascia, Percutaneous Approach (ICD-10-PCS; 2017-10-21 12:44)
DX: N18.6 End stage renal disease (principal); I13.2 Hypertensive heart and chronic kidney disease with heart failure and with stage 5 chronic kidney disease, or end stage renal disease; G93.41 Metabolic encephalopathy; J18.9 Pneumonia, unspecified organism; K25.4 Chronic or unspecified gastric ulcer with hemorrhage; I50.42 Chronic combined systolic (congestive) and diastolic (congestive) heart failure; I27.20 Pulmonary hypertension, unspecified; I15.0 Renovascular hypertension; R78.81 Bacteremia; I70.1 Atherosclerosis of renal artery; E87.5 Hyperkalemia; E87.1 Hypo-osmolality and hyponatremia; D62 Acute posthemorrhagic anemia; J44.9 Chronic obstructive pulmonary disease, unspecified; I65.23 Occlusion and stenosis of bilateral carotid arteries; F41.9 Anxiety disorder, unspecified; F32.9 Major depressive disorder, single episode, unspecified; Z79.899 Other long term (current) drug therapy; I71.4 Abdominal aortic aneurysm, without rupture; Z88.0 Allergy status to penicillin; Z88.2 Allergy status to sulfonamides; Z88.8 Allergy status to other drugs, medicaments and biological substances; F17.200 Nicotine dependence, unspecified, uncomplicated; G47.33 Obstructive sleep apnea (adult) (pediatric); D63.1 Anemia in chronic kidney disease; E87.6 Hypokalemia; N17.9 Acute kidney failure, unspecified; T82.49XA Other complication of vascular dialysis catheter, initial encounter

== ENCOUNTER → 2017-10-13 | Outpatient (REF) | payer BC ==
[2017-10-13 14:15] LABS: HEPATITIS B SURFACE ANTIBODY NEGATIVE (POSITIVE)
[2017-10-13 14:21] LABS: HEPATITIS B SURFACE ANTIGEN NEGATIVE (NEGATIVE)
[2017-10-13 14:49] LABS: HEPATITIS B CORE ANTIBODY IGM NEGATIVE (NEGATIVE); HEPATITIS C VIRUS ABY INDEX < 0.0 INDEX (<0.8)
== END ==
LOC: M LAB REF 12:45
DX: N18.6 End stage renal disease (principal)
CPT/HCPCS: 86706

== ENCOUNTER → 2017-10-27 | Outpatient (CLI) | payer BC | LOC: M RAD 06:29 | DX: R50.9 Fever, unspecified (principal) | CPT/HCPCS: 78806 ==

== ENCOUNTER 2017-10-30 20:57 | Inpatient (IN) | payer BC ==
[2017-10-30] MEDS: SUCRALFATE 1 GM TAB PO ×2 (21:00→23:12)
[2017-10-30 21:48] LABS: BASO # 0.1 10^3/uL (0.0-0.2); BASO % 0.5 % (0.0-1.0); EOS # 0.2 10^3/uL (0.0-0.50); EOS % 1.6 % (0.0-3.0); HEMATOCRIT 22.2 % (36.0-47.0); HEMOGLOBIN 7.4 g/dl (12.0-15.5); IMMATURE GRANULOCYTE % 0.5 % (0-3.0); LYMPH # 1.5 10^3/uL (1.5-4.5); LYMPH % 14.6 % (24.0-44.0); MEAN CORPUSCULAR HEMOGLOBIN 30.3 pg (27.0-33.0); MEAN CORPUSCULAR HGB CONC 33.3 g/dl (32.0-36.5); MONO # 1.1 10^3/uL (0.0-0.8); MONO % 10.4 % (0.0-5.0); NEUTROPHILS # 7.6 10^3/uL (1.8-7.7); NEUTROPHILS % 72.4 % (36.0-66.0); PLATELET COUNT, AUTOMATED 192 10^3/uL (150-450); RED BLOOD COUNT 2.44 10^6/uL (4.00-5.40); RED CELL DISTRIBUTION WIDTH 13.8 % (11.5-14.5); WHITE BLOOD COUNT 10.5 10^3/uL (4.0-10.0)
[2017-10-30 22:07] LABS: INR 1.47; PROTHROMBIN TIME 18.1 SECONDS (12.1-14.4)
[2017-10-30] MEDS: PANTOPRAZOLE 40MG INJ (PROTONIX) (C9113) IV (22:19)
[2017-10-30] MEDS: ONDANSETRON 4MG/2ML VIAL (J2405) IV (22:19)
[2017-10-30] MEDS: NS 1,000 ML IV (22:20)
[2017-10-30 22:23] LABS: ALBUMIN 2.2 GM/DL (3.2-5.2); ALBUMIN/GLOBULIN RATIO 0.81 (1.00-1.93); ALKALINE PHOSPHATASE 61 U/L (45-117); ALT/SGPT 16 U/L (12-78); ANION GAP 7 MEQ/L (8-16); AST/SGOT 13 U/L (7-37); BILIRUBIN,DIRECT 0.1 MG/DL (0.0-0.2); BILIRUBIN,TOTAL 0.4 MG/DL (0.2-1.0); BLOOD UREA NITROGEN 7 MG/DL (7-18); CALCIUM LEVEL 8.1 MG/DL (8.5-10.1); CARBON DIOXIDE LEVEL 30 MEQ/L (21-32); CHLORIDE LEVEL 105 MEQ/L (98-107); CREATININE FOR GFR 2.12 MG/DL (0.55-1.30); GLUCOSE, FASTING 102 MG/DL (70-100); LIPASE 102 U/L (73-393); POTASSIUM SERUM 3.6 MEQ/L (3.5-5.1); SODIUM LEVEL 142 MEQ/L (136-145); TOTAL PROTEIN 4.9 GM/DL (6.4-8.2)
[2017-10-31 01:52] LABS: IMMEDIATE SPIN CROSSMATCH 1 1
[2017-10-31 01:56] LABS: HEMATOCRIT 20.4 % (36.0-47.0)
[2017-10-31 01:59] LABS: HEMOGLOBIN 6.8 g/dl (12.0-15.5)
[2017-10-31] MEDS: LABETALOL 200 MG TAB PO ×3 (02:29→20:57)
[2017-10-31] MEDS: NORTRIPTYLINE 25 MG CAP PO ×2 (02:29→20:57)
[2017-10-31] MEDS: CHLORHEXIDINE ORAL RINSE 0.12%/15ML 120ML BOTTLE MT ×3 (02:30→20:58)
[2017-10-31] MEDS: **hydrALAZINE** 50 MG TAB PO ×4 (02:30→20:58)
[2017-10-31] MEDS: MINOXIDIL 2.5 MG TAB PO ×3 (02:30→20:57)
[2017-10-31] MEDS: ACETAMINOPHEN TAB 650MG DOSE (2X325MG) PO (03:58)
[2017-10-31 07:12] LABS: BASO # 0.1 10^3/uL (0.0-0.2); BASO % 0.6 % (0.0-1.0); EOS # 0.1 10^3/uL (0.0-0.50); EOS % 1.4 % (0.0-3.0); HEMATOCRIT 22.7 % (36.0-47.0); HEMOGLOBIN 7.5 g/dl (12.0-15.5); IMMATURE GRANULOCYTE % 0.5 % (0-3.0); LYMPH % 12.4 % (24.0-44.0); MEAN CORPUSCULAR HEMOGLOBIN 30.2 pg (27.0-33.0); MEAN CORPUSCULAR VOLUME 91.5 fl (80.0-96.0); MONO # 1.1 10^3/uL (0.0-0.8); MONO % 13.4 % (0.0-5.0); NEUTROPHILS # 5.7 10^3/uL (1.8-7.7); NEUTROPHILS % 71.7 % (36.0-66.0); PLATELET COUNT, AUTOMATED 163 10^3/uL (150-450); RED BLOOD COUNT 2.48 10^6/uL (4.00-5.40)
[2017-10-31] MEDS: SUCRALFATE 1 GM TAB PO ×5 (07:44→20:56)
[2017-10-31] MEDS: FERROUS GLUCONATE 324 MG TAB PO (08:30)
[2017-10-31] MEDS: amLODIPine 10 MG TAB PO (08:30)
[2017-10-31] MEDS: FLUoxetine 10 MG CAP PO (08:30)
[2017-10-31] MEDS: ADVAIR HFA 230/21MCG INHALER INH ×2 (09:00→19:31)
[2017-10-31 09:48] LABS: IMMEDIATE SPIN CROSSMATCH 1 1
[2017-10-31] MEDS ORDERED: fentaNYL 100 MCG/2 ML INJECTION (J3010) As Ordered (13:19)
[2017-10-31] MEDS ORDERED: PROPOFOL 200 MG/20 ML VIAL As Ordered (13:19)
[2017-10-31] MEDS: IPRATROPIUM 0.5MG/ALBUTEROL 2.5MG INH SOL UD 3ML (DUONEB)(J7620) NEB ×2 (14:00→19:31)
[2017-10-31] MEDS ORDERED: ONDANSETRON 4MG/2ML VIAL (J2405) IV (14:15)
[2017-10-31] MEDS ORDERED: IPRATROPIUM 0.5MG/ALBUTEROL 2.5MG INH SOL UD 3ML (DUONEB)(J7620) NEB (14:15)
[2017-10-31] MEDS ORDERED: NS 1,000 ML IV (14:15)
[2017-10-31 15:11] LABS: HEMATOCRIT 26.3 % (36.0-47.0); HEMOGLOBIN 8.7 g/dl (12.0-15.5)
[2017-10-31 19:27] LABS: HEMATOCRIT 27.4 % (36.0-47.0); HEMOGLOBIN 8.9 g/dl (12.0-15.5)
[2017-10-31] MEDS: PANTOPRAZOLE 40MG TAB (PROTONIX) PO (20:56)
[2017-10-31] MEDS ORDERED: PANTOPRAZOLE 40MG INJ (PROTONIX) (C9113) IV (21:00)
[2017-10-31] MEDS ORDERED: SLF 3 ML SYR IV (21:00)
[2017-10-31] MEDS: SLF 3 ML SYR IV (22:00)
[2017-11-01] MEDS: IPRATROPIUM 0.5MG/ALBUTEROL 2.5MG INH SOL UD 3ML (DUONEB)(J7620) NEB ×4 (00:57→19:45)
[2017-11-01 01:20] LABS: HEMATOCRIT 25.3 % (36.0-47.0); HEMOGLOBIN 8.3 g/dl (12.0-15.5)
[2017-11-01] MEDS: SLF 3 ML SYR IV ×3 (04:46→20:34)
[2017-11-01 05:12] LABS: BASO # 0.1 10^3/uL (0.0-0.2); BASO % 0.5 % (0.0-1.0); EOS # 0.2 10^3/uL (0.0-0.50); EOS % 1.6 % (0.0-3.0); HEMATOCRIT 24.8 % (36.0-47.0); HEMATOCRIT 25.3 % (36.0-47.0); HEMOGLOBIN 8.2 g/dl (12.0-15.5); HEMOGLOBIN 8.3 g/dl (12.0-15.5); IMMATURE GRANULOCYTE % 0.7 % (0-3.0); LYMPH % 10.5 % (24.0-44.0); MEAN CORPUSCULAR HEMOGLOBIN 29.9 pg (27.0-33.0); MEAN CORPUSCULAR HGB CONC 32.8 g/dl (32.0-36.5); MONO # 0.9 10^3/uL (0.0-0.8); MONO % 9.7 % (0.0-5.0); NEUTROPHILS # 7.2 10^3/uL (1.8-7.7); PLATELET COUNT, AUTOMATED 159 10^3/uL (150-450); RED BLOOD COUNT 2.78 10^6/uL (4.00-5.40); RED CELL DISTRIBUTION WIDTH 14.7 % (11.5-14.5); WHITE BLOOD COUNT 9.4 10^3/uL (4.0-10.0)
[2017-11-01 05:33] LABS: ALBUMIN 2.3 GM/DL (3.2-5.2); ALBUMIN/GLOBULIN RATIO 0.77 (1.00-1.93); ALKALINE PHOSPHATASE 59 U/L (45-117); ALT/SGPT 17 U/L (12-78); ANION GAP 10 MEQ/L (8-16); AST/SGOT 16 U/L (7-37); BILIRUBIN,TOTAL 0.5 MG/DL (0.2-1.0); CALCIUM LEVEL 7.9 MG/DL (8.5-10.1); CARBON DIOXIDE LEVEL 26 MEQ/L (21-32); CHLORIDE LEVEL 103 MEQ/L (98-107); GLOMERULAR FILTRATION RATE 12.4 (>51); GLUCOSE, FASTING 91 MG/DL (70-100); POTASSIUM SERUM 3.5 MEQ/L (3.5-5.1); SODIUM LEVEL 139 MEQ/L (136-145); TOTAL PROTEIN 5.3 GM/DL (6.4-8.2)
[2017-11-01 05:55] LABS: BLOOD UREA NITROGEN 37 MG/DL (7-18)
[2017-11-01 05:56] LABS: CREATININE FOR GFR 4.03 MG/DL (0.55-1.30)
[2017-11-01] MEDS: SUCRALFATE 1 GM TAB PO ×4 (08:02→20:32)
[2017-11-01] MEDS: FERROUS GLUCONATE 324 MG TAB PO (08:31)
[2017-11-01] MEDS: MINOXIDIL 2.5 MG TAB PO ×2 (08:31→20:33)
[2017-11-01] MEDS: **hydrALAZINE** 50 MG TAB PO ×3 (08:31→20:33)
[2017-11-01] MEDS: FLUoxetine 10 MG CAP PO (08:31)
[2017-11-01] MEDS: amLODIPine 10 MG TAB PO (08:31)
[2017-11-01] MEDS: PANTOPRAZOLE 40MG TAB (PROTONIX) PO ×2 (08:31→20:33)
[2017-11-01] MEDS: LABETALOL 200 MG TAB PO ×2 (08:32→20:33)
[2017-11-01] MEDS: CHLORHEXIDINE ORAL RINSE 0.12%/15ML 120ML BOTTLE MT ×2 (08:32→20:34)
[2017-11-01] MEDS: ACETAMINOPHEN TAB 650MG DOSE (2X325MG) PO ×2 (08:56→23:47)
[2017-11-01] MEDS: ADVAIR HFA 230/21MCG INHALER INH ×2 (09:23→19:46)
[2017-11-01] MEDS: TEKTURNA PO (16:07)
[2017-11-01] MEDS: NORTRIPTYLINE 25 MG CAP PO (20:32)
[2017-11-02] MEDS: IPRATROPIUM 0.5MG/ALBUTEROL 2.5MG INH SOL UD 3ML (DUONEB)(J7620) NEB ×4 (02:52→19:49)
[2017-11-02 05:19] LABS: BASO # 0.1 10^3/uL (0.0-0.2); BASO % 0.6 % (0.0-1.0); EOS # 0.2 10^3/uL (0.0-0.50); EOS % 1.8 % (0.0-3.0); HEMATOCRIT 23.9 % (36.0-47.0); HEMOGLOBIN 7.9 g/dl (12.0-15.5); IMMATURE GRANULOCYTE % 0.6 % (0-3.0); LYMPH % 11.8 % (24.0-44.0); MEAN CORPUSCULAR HEMOGLOBIN 29.9 pg (27.0-33.0); MEAN CORPUSCULAR HGB CONC 33.1 g/dl (32.0-36.5); MEAN CORPUSCULAR VOLUME 90.5 fl (80.0-96.0); MONO # 0.7 10^3/uL (0.0-0.8); MONO % 8.9 % (0.0-5.0); NEUTROPHILS # 6.2 10^3/uL (1.8-7.7); NEUTROPHILS % 76.3 % (36.0-66.0); PLATELET COUNT, AUTOMATED 157 10^3/uL (150-450); RED BLOOD COUNT 2.64 10^6/uL (4.00-5.40); RED CELL DISTRIBUTION WIDTH 14.6 % (11.5-14.5); WHITE BLOOD COUNT 8.2 10^3/uL (4.0-10.0)
[2017-11-02 05:47] LABS: ALBUMIN 2.3 GM/DL (3.2-5.2); ALBUMIN/GLOBULIN RATIO 0.77 (1.00-1.93); ALKALINE PHOSPHATASE 61 U/L (45-117); ALT/SGPT 16 U/L (12-78); ANION GAP 10 MEQ/L (8-16); AST/SGOT 16 U/L (7-37); BILIRUBIN,TOTAL 0.4 MG/DL (0.2-1.0); BLOOD UREA NITROGEN 42 MG/DL (7-18); CALCIUM LEVEL 7.9 MG/DL (8.5-10.1); CARBON DIOXIDE LEVEL 25 MEQ/L (21-32); CHLORIDE LEVEL 102 MEQ/L (98-107); CREATININE FOR GFR 4.98 MG/DL (0.55-1.30); GLOMERULAR FILTRATION RATE 9.7 (>51); GLUCOSE, FASTING 91 MG/DL (70-100); POTASSIUM SERUM 3.6 MEQ/L (3.5-5.1); SODIUM LEVEL 137 MEQ/L (136-145); TOTAL PROTEIN 5.3 GM/DL (6.4-8.2)
[2017-11-02] MEDS: FERROUS GLUCONATE 324 MG TAB PO (06:18)
[2017-11-02] MEDS: SLF 3 ML SYR IV ×3 (06:18→21:19)
[2017-11-02] MEDS: SUCRALFATE 1 GM TAB PO ×4 (06:19→21:02)
[2017-11-02] MEDS: MINOXIDIL 2.5 MG TAB PO ×2 (06:19→21:02)
[2017-11-02] MEDS: amLODIPine 10 MG TAB PO (06:19)
[2017-11-02] MEDS: FLUoxetine 10 MG CAP PO (06:19)
[2017-11-02] MEDS: LABETALOL 200 MG TAB PO ×2 (06:20→21:03)
[2017-11-02] MEDS: PANTOPRAZOLE 40MG TAB (PROTONIX) PO ×2 (06:20→21:01)
[2017-11-02] MEDS: **hydrALAZINE** 50 MG TAB PO ×3 (06:20→21:03)
[2017-11-02] MEDS: CHLORHEXIDINE ORAL RINSE 0.12%/15ML 120ML BOTTLE MT ×2 (06:22→21:00)
[2017-11-02] MEDS: ADVAIR HFA 230/21MCG INHALER INH ×2 (08:10→19:49)
[2017-11-02] MEDS: HEPARIN 1,000 UNITS/ML 10ML VIAL (FOR RADIOLOGY& DIALYSIS ONLY) XX (10:00)
[2017-11-02 13:01] LABS: FERRITIN 280 NG/ML (8-252); IRON (FE) 30 UG/DL (50-170); PERCENT SATURATION 15.3 % (13.2-45.0); TOTAL IRON BINDING CAPACITY 196 UG/DL (250-450)
[2017-11-02] MEDS: TEKTURNA PO (15:52)
[2017-11-02 16:41] LABS: HEMATOCRIT 25.4 % (36.0-47.0); HEMOGLOBIN 8.4 g/dl (12.0-15.5)
[2017-11-02] MEDS: ACETAMINOPHEN TAB 650MG DOSE (2X325MG) PO (16:46)
[2017-11-02] MEDS: NORTRIPTYLINE 25 MG CAP PO (21:01)
[2017-11-03] MEDS: IPRATROPIUM 0.5MG/ALBUTEROL 2.5MG INH SOL UD 3ML (DUONEB)(J7620) NEB ×2 (02:15→08:00)
[2017-11-03] MEDS: amLODIPine 10 MG TAB PO (04:43)
[2017-11-03] MEDS: MINOXIDIL 2.5 MG TAB PO (04:44)
[2017-11-03] MEDS: LABETALOL 200 MG TAB PO (04:44)
[2017-11-03] MEDS: **hydrALAZINE** 50 MG TAB PO (04:45)
[2017-11-03] MEDS: SLF 3 ML SYR IV (05:09)
[2017-11-03 05:19] LABS: BASO # 0.1 10^3/uL (0.0-0.2); BASO % 0.7 % (0.0-1.0); EOS # 0.2 10^3/uL (0.0-0.50); EOS % 2.5 % (0.0-3.0); HEMATOCRIT 24.1 % (36.0-47.0); HEMOGLOBIN 7.9 g/dl (12.0-15.5); IMMATURE GRANULOCYTE % 0.5 % (0-3.0); LYMPH % 12.1 % (24.0-44.0); MEAN CORPUSCULAR HEMOGLOBIN 29.4 pg (27.0-33.0); MEAN CORPUSCULAR HGB CONC 32.8 g/dl (32.0-36.5); MEAN CORPUSCULAR VOLUME 89.6 fl (80.0-96.0); MONO # 0.8 10^3/uL (0.0-0.8); MONO % 9.9 % (0.0-5.0); NEUTROPHILS # 6.1 10^3/uL (1.8-7.7); NEUTROPHILS % 74.3 % (36.0-66.0); PLATELET COUNT, AUTOMATED 163 10^3/uL (150-450); RED BLOOD COUNT 2.69 10^6/uL (4.00-5.40); RED CELL DISTRIBUTION WIDTH 14.3 % (11.5-14.5); WHITE BLOOD COUNT 8.2 10^3/uL (4.0-10.0)
[2017-11-03 05:36] LABS: ALBUMIN 2.4 GM/DL (3.2-5.2); ALBUMIN/GLOBULIN RATIO 0.77 (1.00-1.93); ALKALINE PHOSPHATASE 62 U/L (45-117); ALT/SGPT 17 U/L (12-78); ANION GAP 7 MEQ/L (8-16); AST/SGOT 17 U/L (7-37); BILIRUBIN,TOTAL 0.5 MG/DL (0.2-1.0); BLOOD UREA NITROGEN 18 MG/DL (7-18); CALCIUM LEVEL 8.1 MG/DL (8.5-10.1); CARBON DIOXIDE LEVEL 28 MEQ/L (21-32); CHLORIDE LEVEL 102 MEQ/L (98-107); CREATININE FOR GFR 3.16 MG/DL (0.55-1.30); GLOMERULAR FILTRATION RATE 16.4 (>51); GLUCOSE, FASTING 100 MG/DL (70-100); POTASSIUM SERUM 3.3 MEQ/L (3.5-5.1); SODIUM LEVEL 137 MEQ/L (136-145); TOTAL PROTEIN 5.5 GM/DL (6.4-8.2)
[2017-11-03] MEDS: ADVAIR HFA 230/21MCG INHALER INH (07:50)
[2017-11-03] MEDS: SUCRALFATE 1 GM TAB PO (08:02)
[2017-11-03] MEDS: CHLORHEXIDINE ORAL RINSE 0.12%/15ML 120ML BOTTLE MT (09:00)
[2017-11-03] MEDS: POTASSIUM CHLORIDE 10 MEQ SR TABLET PO (09:06)
[2017-11-03] MEDS: FLUoxetine 10 MG CAP PO (09:06)
[2017-11-03] MEDS: PANTOPRAZOLE 40MG TAB (PROTONIX) PO (09:06)
[2017-11-03] MEDS: FERROUS GLUCONATE 324 MG TAB PO (09:06)
== END 2017-11-03 11:10 | disposition home or self-care (01) | DRG 241 ==
LOC: M ED INP 10-31 00:22 → M ICU 10-31 01:22 → M ED 20:57 → M PCU 10-31 17:38
PROC: 0DJ08ZZ Inspection of Upper Intestinal Tract, Via Natural or Artificial Opening Endoscopic (ICD-10-PCS; principal; 2017-10-31 10:00)
PROC: 30233N1 Transfusion of Nonautologous Red Blood Cells into Peripheral Vein, Percutaneous Approach (ICD-10-PCS; 2017-10-31 13:34)
DX: K25.4 Chronic or unspecified gastric ulcer with hemorrhage (principal); I13.2 Hypertensive heart and chronic kidney disease with heart failure and with stage 5 chronic kidney disease, or end stage renal disease; N18.6 End stage renal disease; I70.1 Atherosclerosis of renal artery; I50.32 Chronic diastolic (congestive) heart failure; J44.9 Chronic obstructive pulmonary disease, unspecified; F41.9 Anxiety disorder, unspecified; F32.9 Major depressive disorder, single episode, unspecified; R50.9 Fever, unspecified; I73.9 Peripheral vascular disease, unspecified; I71.4 Abdominal aortic aneurysm, without rupture; Z79.899 Other long term (current) drug therapy; F17.210 Nicotine dependence, cigarettes, uncomplicated; Z88.8 Allergy status to other drugs, medicaments and biological substances; Z88.0 Allergy status to penicillin; Z88.2 Allergy status to sulfonamides; D63.1 Anemia in chronic kidney disease; D62 Acute posthemorrhagic anemia

== ENCOUNTER 2017-11-30 13:34 | Emergency (ER) | payer BC ==
[2017-11-30 14:18] LABS: BASO # 0.1 10^3/uL (0.0-0.2); BASO % 0.9 % (0.0-1.0); EOS # 0.2 10^3/uL (0.0-0.50); EOS % 2.9 % (0.0-3.0); HEMATOCRIT 24.9 % (36.0-47.0); HEMOGLOBIN 8.2 g/dl (12.0-15.5); IMMATURE GRANULOCYTE % 0.9 % (0-3.0); LYMPH # 1.1 10^3/uL (1.5-4.5); LYMPH % 13.7 % (24.0-44.0); MEAN CORPUSCULAR HEMOGLOBIN 30.7 pg (27.0-33.0); MEAN CORPUSCULAR HGB CONC 32.9 g/dl (32.0-36.5); MEAN CORPUSCULAR VOLUME 93.3 fl (80.0-96.0); MONO # 0.8 10^3/uL (0.0-0.8); MONO % 10.8 % (0.0-5.0); NEUTROPHILS # 5.5 10^3/uL (1.8-7.7); NEUTROPHILS % 70.8 % (36.0-66.0); PLATELET COUNT, AUTOMATED 192 10^3/uL (150-450); RED BLOOD COUNT 2.67 10^6/uL (4.00-5.40); RED CELL DISTRIBUTION WIDTH 15.3 % (11.5-14.5); WHITE BLOOD COUNT 7.8 10^3/uL (4.0-10.0)
[2017-11-30 14:44] LABS: ANION GAP 12 MEQ/L (8-16); BLOOD UREA NITROGEN 46 MG/DL (7-18); CALCIUM LEVEL 8.7 MG/DL (8.5-10.1); CARBON DIOXIDE LEVEL 24 MEQ/L (21-32); CHLORIDE LEVEL 99 MEQ/L (98-107); CPK CREATINE PHOSPHOKINASE 41 U/L (26-192); GLOMERULAR FILTRATION RATE 4.2 (>51); GLUCOSE, FASTING 112 MG/DL (70-100); POTASSIUM SERUM 4.5 MEQ/L (3.5-5.1); SODIUM LEVEL 135 MEQ/L (136-145); TROPONIN I < 0.02 NG/ML (< 0.10)
[2017-11-30 14:45] LABS: CK-MB VALUE MASS 2.2 NG/ML (<3.6); MB/CK RELATIVE INDEX 5.36 (< OR =4)
[2017-11-30] MEDS: ONDANSETRON 4MG/2ML VIAL (J2405) IV (14:53)
== END 2017-11-30 16:20 | disposition home or self-care (01) ==
LOC: M ED 13:34
DX: N18.6 End stage renal disease (principal); T46.5X5A Adverse effect of other antihypertensive drugs, initial encounter; Z99.2 Dependence on renal dialysis; Z72.0 Tobacco use; I50.9 Heart failure, unspecified; Z79.899 Other long term (current) drug therapy; Z88.8 Allergy status to other drugs, medicaments and biological substances; Z88.0 Allergy status to penicillin; Z88.1 Allergy status to other antibiotic agents
CPT/HCPCS: J2405

== ENCOUNTER 2018-03-07 22:46 | Emergency (ER) | payer BC ==
[2018-03-07] MEDS: ASPIRIN 81 MG CHEW TABLET PO (23:15)
[2018-03-07 23:40] LABS: BASO # 0.1 10^3/uL (0.0-0.2); BASO % 0.8 % (0.0-1.0); EOS # 0.3 10^3/uL (0.0-0.50); EOS % 3.8 % (0.0-3.0); HEMATOCRIT 40.6 % (36.0-47.0); HEMOGLOBIN 12.6 g/dl (12.0-15.5); IMMATURE GRANULOCYTE % 0.4 % (0-3.0); LYMPH # 1.1 10^3/uL (1.5-4.5); LYMPH % 13.3 % (24.0-44.0); MEAN CORPUSCULAR VOLUME 93.5 fl (80.0-96.0); MONO # 0.6 10^3/uL (0.0-0.8); MONO % 7.4 % (0.0-5.0); NEUTROPHILS # 5.9 10^3/uL (1.8-7.7); NEUTROPHILS % 74.3 % (36.0-66.0); PLATELET COUNT, AUTOMATED 123 10^3/uL (150-450); RED BLOOD COUNT 4.34 10^6/uL (4.00-5.40); RED CELL DISTRIBUTION WIDTH 17.8 % (11.5-14.5)
[2018-03-07] MEDS: ALBUTEROL SULFATE 2.5 MG/0.5 ML INH NEB SOLN NEB ×3 (23:48)
[2018-03-08 00:08] LABS: ANION GAP 12 MEQ/L (8-16); BLOOD UREA NITROGEN 30 MG/DL (7-18); CALCIUM LEVEL 8.7 MG/DL (8.5-10.1); CARBON DIOXIDE LEVEL 23 MEQ/L (21-32); CHLORIDE LEVEL 103 MEQ/L (98-107); CPK CREATINE PHOSPHOKINASE 33 U/L (26-192); CREATININE FOR GFR 5.53 MG/DL (0.55-1.30); GLOMERULAR FILTRATION RATE 8.6 (>51); GLUCOSE, FASTING 92 MG/DL (70-100); MB/CK RELATIVE INDEX 5.45 (< OR =4); SODIUM LEVEL 138 MEQ/L (136-145); TROPONIN I < 0.02 NG/ML (< 0.10)
[2018-03-08 00:15] LABS: INFLUENZA A AMPLIFICATION NEGATIVE (NEGATIVE); INFLUENZA B AMPLIFICATION NEGATIVE (NEGATIVE)
[2018-03-08] MEDS ORDERED: IPRATROPIUM 0.5MG/ALBUTEROL 2.5MG INH SOL UD 3ML (DUONEB)(J7620) NEB (00:30)
[2018-03-08] MEDS: cefTRIAXone SOD 1 GM in D5W MINI-BAG PLUS 50 ML IV (00:47)
[2018-03-08] MEDS: diphenhydrAMINE INJ 50MG/ML VIAL (J1200) IV (00:47)
[2018-03-08] MEDS: AZITHROMYCIN 250 MG TAB PO (00:47)
== END 2018-03-08 02:06 | disposition left against medical advice (07) ==
LOC: M ED 03-08 02:06
DX: J18.9 Pneumonia, unspecified organism (principal); I10 Essential (primary) hypertension; N19 Unspecified kidney failure; Z99.2 Dependence on renal dialysis; Z79.899 Other long term (current) drug therapy; Z88.0 Allergy status to penicillin; Z88.1 Allergy status to other antibiotic agents; Z88.2 Allergy status to sulfonamides; Z88.8 Allergy status to other drugs, medicaments and biological substances
CPT/HCPCS: J1200

== ENCOUNTER 2018-03-12 03:00 | Inpatient (IN) | payer BC ==
[2018-03-12 03:06] LABS: BEDSIDE GLUCOSE 150 MG/DL (70-105)
[2018-03-12 03:20] LABS: BASO # 0.1 10^3/uL (0.0-0.2); BASO % 0.6 % (0.0-1.0); EOS % 0.3 % (0.0-3.0); HEMATOCRIT 41.5 % (36.0-47.0); IMMATURE GRANULOCYTE % 0.2 % (0-3.0); LYMPH # 0.3 10^3/uL (1.5-4.5); LYMPH % 2.6 % (24.0-44.0); MEAN CORPUSCULAR HEMOGLOBIN 29.4 pg (27.0-33.0); MEAN CORPUSCULAR HGB CONC 31.3 g/dl (32.0-36.5); MEAN CORPUSCULAR VOLUME 93.9 fl (80.0-96.0); MONO # 0.4 10^3/uL (0.0-0.8); MONO % 3.3 % (0.0-5.0); NEUTROPHILS # 11.4 10^3/uL (1.8-7.7); PLATELET COUNT, AUTOMATED 138 10^3/uL (150-450); RED BLOOD COUNT 4.42 10^6/uL (4.00-5.40); RED CELL DISTRIBUTION WIDTH 18.7 % (11.5-14.5); WHITE BLOOD COUNT 12.3 10^3/uL (4.0-10.0)
[2018-03-12 03:44] LABS: ABG BASE EXCESS -0.2 (-2.0-2.0); ABG HCO3 24.5 MEQ/L (22.0-26.0); ABG O2 SATURATION 91.4 % (95.0-99.0); ABG PARTIAL PRESSURE CO2 40.6 mmHg (35.0-45.0); ABG STANDARD HCO3 24.2 MEQ/L (22.0-26.0); ABG TOTAL CO2 25.8 MEQ/L (22.0-29.0); ABG pH (ARTERIAL) 7.399 UNITS (7.350-7.450)
[2018-03-12 03:52] LABS: LACTIC ACID SEPSIS PROTOCOL 0.8 MMOL/L (0.4-2.0)
[2018-03-12 04:52] LABS: ANION GAP 10 MEQ/L (8-16); BLOOD UREA NITROGEN 27 MG/DL (7-18); CALCIUM LEVEL 9.2 MG/DL (8.5-10.1); CARBON DIOXIDE LEVEL 24 MEQ/L (21-32); CHLORIDE LEVEL 106 MEQ/L (98-107); CPK CREATINE PHOSPHOKINASE 31 U/L (26-192); CREATININE FOR GFR 5.14 MG/DL (0.55-1.30); GLOMERULAR FILTRATION RATE 9.3 (>51); GLUCOSE, FASTING 141 MG/DL (70-100); NT-PRO BNP > 175000 PG/ML (<125); POTASSIUM SERUM 5.2 MEQ/L (3.5-5.1); SODIUM LEVEL 140 MEQ/L (136-145); TROPONIN I 0.02 NG/ML (< 0.10)
[2018-03-12] MEDS ORDERED: ISOVUE-370 76% 100ML VIAL (Q9967) As Ordered (05:52)
[2018-03-12] MEDS ORDERED: IPRATROPIUM 0.5MG/ALBUTEROL 2.5MG INH SOL UD 3ML (DUONEB)(J7620) INH (06:15)
[2018-03-12] MEDS: methylPREDNISolone INJ 40 MG/1 ML VIAL (J2920) IV (07:41)
[2018-03-12] MEDS: IPRATROPIUM 0.5MG/ALBUTEROL 2.5MG INH SOL UD 3ML (DUONEB)(J7620) NEB ×3 (08:00→20:00)
[2018-03-12] MEDS: PANTOPRAZOLE 40MG TAB (PROTONIX) PO (08:17)
[2018-03-12] MEDS: LABETALOL 200 MG TAB PO ×2 (08:17→21:14)
[2018-03-12] MEDS: **hydrALAZINE** 50 MG TAB PO ×3 (08:18→21:13)
[2018-03-12 08:20] LABS: C REACTIVE PROTEIN QUANTITATIV 1.61 MG/DL (0.00-0.30); CPK CREATINE PHOSPHOKINASE 27 U/L (26-192); MB/CK RELATIVE INDEX 7.78 (< OR =4); TROPONIN I 0.02 NG/ML (< 0.10)
[2018-03-12] MEDS: SUCRALFATE SUSP 1GM/10ML UD PO (09:00)
[2018-03-12] MEDS: FLUoxetine 10 MG CAP PO (09:00)
[2018-03-12] MEDS: NYSTATIN 500,000 U/5 ML SUSP UDC SS ×4 (09:00→21:12)
[2018-03-12] MEDS ORDERED: amLODIPine 10 MG TAB PO (09:00)
[2018-03-12 09:04] LABS: ABG HCO3 20.6 MEQ/L (22.0-26.0); ABG O2 SATURATION 92.8 % (95.0-99.0); ABG PARTIAL PRESSURE CO2 32.5 mmHg (35.0-45.0); ABG PARTIAL PRESSURE O2 64.6 mmHg (75.0-100.0); ABG SITE RT RADIAL; ABG STANDARD HCO3 21.9 MEQ/L (22.0-26.0); ABG TOTAL CO2 21.6 MEQ/L (22.0-29.0)
[2018-03-12] MEDS: HEPARIN SOD (PORCINE) 5000 UNITS/ML VIAL SQ ×3 (09:43→21:12)
[2018-03-12] MEDS: ADVAIR HFA 115/21MCG INHALER INH ×2 (11:35→20:59)
[2018-03-12] MEDS: MINOXIDIL 2.5 MG TAB PO ×2 (13:08→21:13)
[2018-03-12 13:59] LABS: CPK CREATINE PHOSPHOKINASE 28 U/L (26-192); TROPONIN I 0.02 NG/ML (< 0.10)
[2018-03-12] MEDS ORDERED: ONDANSETRON 4 MG TAB (S0181) PO (14:45)
[2018-03-12] MEDS: EXCEDRIN MIGRAINE TABLET PO (19:35)
[2018-03-12] MEDS: NORTRIPTYLINE 25 MG CAP PO (21:12)
[2018-03-13] MEDS: IPRATROPIUM 0.5MG/ALBUTEROL 2.5MG INH SOL UD 3ML (DUONEB)(J7620) NEB ×3 (00:57→07:39)
[2018-03-13 04:46] LABS: HEMOGLOBIN 11.4 g/dl (12.0-15.5); MEAN CORPUSCULAR HEMOGLOBIN 29.6 pg (27.0-33.0); MEAN CORPUSCULAR HGB CONC 31.7 g/dl (32.0-36.5); MEAN CORPUSCULAR VOLUME 93.5 fl (80.0-96.0); PLATELET COUNT, AUTOMATED 135 10^3/uL (150-450); RED BLOOD COUNT 3.85 10^6/uL (4.00-5.40); WHITE BLOOD COUNT 10.1 10^3/uL (4.0-10.0)
[2018-03-13 05:04] LABS: ANION GAP 9 MEQ/L (8-16); BLOOD UREA NITROGEN 26 MG/DL (7-18); C REACTIVE PROTEIN QUANTITATIV 2.17 MG/DL (0.00-0.30); CALCIUM LEVEL 8.2 MG/DL (8.5-10.1); CARBON DIOXIDE LEVEL 28 MEQ/L (21-32); CHLORIDE LEVEL 100 MEQ/L (98-107); CREATININE FOR GFR 3.99 MG/DL (0.55-1.30); GLOMERULAR FILTRATION RATE 12.5 (>51); GLUCOSE, FASTING 126 MG/DL (70-100); MAGNESIUM LEVEL 2.3 MG/DL (1.8-2.4); POTASSIUM SERUM 4.2 MEQ/L (3.5-5.1); SODIUM LEVEL 137 MEQ/L (136-145)
[2018-03-13] MEDS: HEPARIN SOD (PORCINE) 5000 UNITS/ML VIAL SQ (05:38)
[2018-03-13] MEDS: ADVAIR HFA 115/21MCG INHALER INH (07:38)
[2018-03-13] MEDS: SUCRALFATE SUSP 1GM/10ML UD PO (10:05)
[2018-03-13] MEDS: NYSTATIN 500,000 U/5 ML SUSP UDC SS (10:05)
[2018-03-13] MEDS: MINOXIDIL 2.5 MG TAB PO (10:05)
[2018-03-13] MEDS: **hydrALAZINE** 50 MG TAB PO (10:06)
[2018-03-13] MEDS: LABETALOL 200 MG TAB PO (10:06)
[2018-03-13] MEDS: PANTOPRAZOLE 40MG TAB (PROTONIX) PO (10:06)
[2018-03-13] MEDS: amLODIPine 10 MG TAB PO (10:06)
[2018-03-13] MEDS: FLUoxetine 10 MG CAP PO (10:07)
[2018-03-13] MEDS: ISOSORBIDE MON. (IMDUR) 60 MG XR TAB PO (12:30)
[2018-03-17] MEDS ORDERED: cloNIDine HCL 0.3 MG/24 HR PATCH TOP (09:00)
== END 2018-03-13 12:46 | disposition home or self-care (01) | DRG 133 ==
LOC: M ED 03:00 → M ED INP 06:01 → M ICU 08:03
PROVIDERS: Internal Medicine Nephrology
DX: J96.01 Acute respiratory failure with hypoxia (principal); N18.6 End stage renal disease; I50.32 Chronic diastolic (congestive) heart failure; I27.20 Pulmonary hypertension, unspecified; J90 Pleural effusion, not elsewhere classified; I16.0 Hypertensive urgency; I15.0 Renovascular hypertension; J44.9 Chronic obstructive pulmonary disease, unspecified; I70.1 Atherosclerosis of renal artery; E87.5 Hyperkalemia; Z91.19 Patient's noncompliance with other medical treatment and regimen; I73.9 Peripheral vascular disease, unspecified; I71.4 Abdominal aortic aneurysm, without rupture; Z79.899 Other long term (current) drug therapy; D72.829 Elevated white blood cell count, unspecified; Z88.0 Allergy status to penicillin; Z88.2 Allergy status to sulfonamides; Z88.8 Allergy status to other drugs, medicaments and biological substances; Z87.891 Personal history of nicotine dependence

== ENCOUNTER 2018-04-16 16:26 | Inpatient (IN) | payer BC ==
[2018-04-16] VITALS (26 sets, daily range): BP systolic 208–255; BP diastolic 91–117
[~2018-04-16] VITALS: Ht 157.5 cm; Wt 53.5 kg
[~2018-04-16 16:26] MED LIST changes: +ADV250INH INH; +ALB2.5NEB INH; -AMLO10TA2 PO; +AMLO10TA4 PO; +ASPI325T25 PO; +AURY1TAB PO; +CALC1CAP31 PO; +CARA1TAB6; +CARA1TAB6 PO; +CLON0.3D8 TD; +CLONIDINE TOP; +CLOP75TA2 PO; +COMBAER6 INH; +D3-5CAP PO; +EDARBI; +EXCETAB80 PO; +FERR32TA PO; +FLUO10TA2 PO; +HYDR-3911 PO; +HYDR100T PO; +HYDR50TA PO; +ISOS60TA2 PO; +LABE20TAB PO; +LABE300T2 PO; +LASI80TA PO; +LOSA-4 PO; -LOSA100T36 PO; +MINO10TA PO; +MINO2.5T PO; +NORT75CA2 PO; +NYST50SS SS; +PANT40TA3 PO; +PATIENT COMMENTS; +PLAV1TAB2 PO; +PRED10TA2 PO; +RENATAB5 PO; +SUCR1SS PO; +SUCR1TA PO; +SUCR1TAB56 PO; +TEKT150T; +TEKT150T PO; +TEKT300T PO; +VITA50005; +ZITHTAB PO; +ZOFR4TAB16 PO
[2018-04-16 16:50] LABS: ABG BASE EXCESS -10.2 (-2.0-2.0); ABG HCO3 15.3 MEQ/L (22.0-26.0); ABG O2 SATURATION 99.7 % (95.0-99.0); ABG PARTIAL PRESSURE CO2 32.7 mmHg (35.0-45.0); ABG PARTIAL PRESSURE O2 350.1 mmHg (75.0-100.0); ABG STANDARD HCO3 16.4 MEQ/L (22.0-26.0); ABG TOTAL CO2 16.3 MEQ/L (22.0-29.0); ABG pH (ARTERIAL) 7.289 UNITS (7.350-7.450)
[2018-04-16] MEDS ORDERED: PROPOFOL 1,000 MG in APPROPRIATE DILUENT 1 EA IV SCH (17:00)
[2018-04-16 17:01] LABS: BASO # 0.1 10^3/uL (0.0-0.2); BASO % 0.4 % (0.0-1.0); EOS # 0.3 10^3/uL (0.0-0.50); EOS % 1.6 % (0.0-3.0); HEMATOCRIT 35.5 % (36.0-47.0); HEMOGLOBIN 10.9 g/dl (12.0-15.5); LYMPH # 1.5 10^3/uL (1.5-4.5); LYMPH % 7.6 % (24.0-44.0); MEAN CORPUSCULAR HEMOGLOBIN 30.2 pg (27.0-33.0); MEAN CORPUSCULAR HGB CONC 30.7 g/dl (32.0-36.5); MEAN CORPUSCULAR VOLUME 98.3 fl (80.0-96.0); MONO # 0.9 10^3/uL (0.0-0.8); MONO % 4.5 % (0.0-5.0); NEUTROPHILS # 16.8 10^3/uL (1.8-7.7); NEUTROPHILS % 85.1 % (36.0-66.0); PLATELET COUNT, AUTOMATED 155 10^3/uL (150-450); RED BLOOD COUNT 3.61 10^6/uL (4.00-5.40); WHITE BLOOD COUNT 19.7 10^3/uL (4.0-10.0)
[2018-04-16] MEDS ORDERED: SODIUM CHLORIDE 0.9% INJ 10 ML SYR IV PRN (18:00)
[2018-04-16] MEDS ORDERED: HEPARIN 1,000 UNITS/ML 10ML VIAL (FOR RADIOLOGY& DIALYSIS ONLY) IV PRN (18:00)
[2018-04-16] MEDS ORDERED: NORC1TAB4 PO (18:10)
[2018-04-16] MEDS ORDERED: LANT1000 PO (18:10)
[2018-04-16] MEDS ORDERED: TEKT300T PO (18:10)
[2018-04-16] MEDS ORDERED: HYDR100T PO (18:14)
[2018-04-16] MEDS ORDERED: ISOS60TA2 PO (18:14)
[2018-04-16] MEDS ORDERED: VANCOMYCIN HCL 1,000 MG, VIAL MATE ADAPTER 1 EACH in D5W 250 ML IV ONE (18:15)
--- NOTE | 2018-04-16 18:43 | PHACANCOPD ---
PHARMACY VANCOMYCIN DOSING Pt Demographics Demographics Patient Age:53 , Weight:59.200 , Gender: female Adjusted Body Weight Date: 04/16/18, Adjusted Body Weight: Kg Events Past 24 Hours Events Past 24 Hours: YES: Elevation in WBC, Pending Diagnostics Vancomycin Vancomycin indication: SEPSIS Vancomycin Target Ranges: 15-20 mcg/ml Vancomycin Load Y/N: Yes Load Dose Date Time Vancomycin Load Dose: 1g Date: 04/16/18 Time: 181 Vancomycin Dose Date: 04/16/18. Current Vancomycin Dose: [intermittent based on random levels] Intermittent Dosing?: Yes Labs Labs Item Value Date Time White Blood Count 19.7 10^3/uL H 04/16/18 1647 Creatinine Clearance Date:04/16/18. Creatinine Clearance: . Pending Labs Vancomycin random level scheduled 04/17/18 @0500 Assessment and Plan Maintaining Current Dose?: Yes Reason for dose change: No Dose Change Pharmacist Note Pharmacist Note Date: 04/16/18. Pharmacist note: Day #1 empiric vancomycin therapy initiated with a 1g loading dose for the treatment of possible sepsis - aiming for a goal trough of 15-20mcg/ml. Patient presented in cardiac arrest with acute hypoxic respiratory failure, and is now intubated. Was recently admitted to [facility] 03/2018 for acute hypoxic respiratory failure 2/2 fluid overload. The patient has a PMH of CHF and COPD oxygen dependent on 1.5L O2 at home. The patient has been on chronic hemodialysis with a normal schedule of Tuesdays, , and Saturdays - but missed today's session. It is noted that the patient also has a new PD catheter placed in the RLQ, but peritoneal dialysis has not yet been started. WBC and pulse are now currently elevated, and the patient is afebrile. Peritoneal fluid culture is pending. No PMH of MRSA, but does have a PMH of vanco use here at [facility] as recent as October 2017. No current H&P yet available. We will continue with intermittent dosing based on random levels at this point until a decision on further dialysis sessions is made. A random level has been scheduled to be drawn tomorrow with morning labs. We will continue to monitor and schedule further doses accordingly. NAVJOT TURCIOS PHARMACY Apr 16, 2018 18:43
[2018-04-16] MEDS ORDERED: hydrALAZINE INJ 20 MG/ML VIAL As Ordered ONE (18:54)
[2018-04-16] MEDS ORDERED: VANCOMYCIN INTERMITTENT/PULSE DOSING BY CLINICAL PHARMACIST PER DOSING PROTOCOL XX SCH (19:00)
[2018-04-16] MEDS: PROPOFOL 1,000 MG in APPROPRIATE DILUENT 1 EA IV SCH (19:10)
[2018-04-16] MEDS ORDERED: hydrALAZINE INJ 20 MG/ML VIAL IV STA (19:23)
[2018-04-16 19:33] LABS: HEMOGLOBIN 11.1 g/dl (12.0-15.5); MEAN CORPUSCULAR HEMOGLOBIN 30.2 pg (27.0-33.0); MEAN CORPUSCULAR HGB CONC 30.8 g/dl (32.0-36.5); MEAN CORPUSCULAR VOLUME 98.1 fl (80.0-96.0); PLATELET COUNT, AUTOMATED 181 10^3/uL (150-450); RED BLOOD COUNT 3.67 10^6/uL (4.00-5.40); WHITE BLOOD COUNT 26.8 10^3/uL (4.0-10.0)
[2018-04-16 19:36] LABS: IONIZED CALCIUM 4.7 MG/DL (4.5-5.3)
[2018-04-16 19:48] LABS: ALBUMIN 3.3 GM/DL (3.2-5.2); ALT/SGPT 20 U/L (12-78); BILIRUBIN,DIRECT 0.3 MG/DL (0.0-0.2); BILIRUBIN,TOTAL 0.8 MG/DL (0.2-1.0); BLOOD UREA NITROGEN 37 MG/DL (7-18); CARBON DIOXIDE LEVEL 25 MEQ/L (21-32); CHLORIDE LEVEL 104 MEQ/L (98-107); CPK CREATINE PHOSPHOKINASE 52 U/L (26-192); CREATININE FOR GFR 5.42 MG/DL (0.55-1.30); GLOMERULAR FILTRATION RATE 8.8 (>51); GLUCOSE, FASTING 136 MG/DL (70-100); MB/CK RELATIVE INDEX 5.96 (< OR =4); SODIUM LEVEL 139 MEQ/L (136-145); THYROID STIMULATING HORMONE 0.703 uIU/ML (0.358-3.740); TOTAL PROTEIN 6.5 GM/DL (6.4-8.2); TROPONIN I 0.08 NG/ML (< 0.10)
[2018-04-16 19:49] LABS: NT-PRO BNP > 175000 PG/ML (<125)
[2018-04-16] MEDS: IPRATROPIUM 0.5MG/ALBUTEROL 2.5MG INH SOL UD 3ML (DUONEB)(J7620) NEB SCH (19:53)
[2018-04-16 19:54] LABS: INR 1.19; PROTHROMBIN TIME 15.3 SECONDS (12.1-14.4)
[2018-04-16 19:55] LABS: CALCIUM LEVEL 8.7 MG/DL (8.5-10.1); CREATININE FOR GFR 5.46 MG/DL (0.55-1.30); GLOMERULAR FILTRATION RATE 8.7 (>51); MAGNESIUM LEVEL 2.5 MG/DL (1.8-2.4); PARTIAL THROMBOPLASTIN TIME 30.4 SECONDS (25.4-37.6); PHOSPHORUS LEVEL 4.7 MG/DL (2.5-4.9)
[2018-04-16] MEDS: CHLORHEXIDINE GLUCONATE 0.12 % 15ML UDC (PERIDEX ORAL RINSE) MT SCH (20:41)
[2018-04-16] MEDS: MEROPENEM INJ 500 MG in APPROPRIATE DILUENT 1 EA IV SCH (20:41)
[2018-04-16] MEDS ORDERED: **hydrALAZINE** 50 MG TAB PO SCH (21:00)
[2018-04-16] MEDS ORDERED: MINOXIDIL 2.5 MG TAB PO SCH (21:00)
[2018-04-16] MEDS ORDERED: LABETALOL 200 MG TAB PO SCH (21:00)
[2018-04-16] MEDS: HEPARIN SOD (PORCINE) 5000 UNITS/ML VIAL SC SCH (21:28)
[2018-04-16] MEDS ORDERED: PILL CRUSHER/CUTTER 1 EACH XX PRN (21:30)
--- NOTE | 2018-04-16 22:24 | HPE ---
DATE OF ADMISSION: 04/16/2018 Critical care time is 2 hours, this excludes all procedures. Brigitte is a 53-year-old female with known renal failure on hemodialysis who was in her usual state of health yesterday, was walking, helping around the house. She had developed a cough, according to her mother, and the then this morning had increased shortness of breath and wasn't feeling well so she did not present for dialysis. Her dyspnea became progressive despite her going up on her oxygen. An ambulance was the eventually called, They had tried cpap in the ambulance but the patient was fighting this and then had an arrest. The patient was in pulseless electrical activity (PEA) in the ambulance. Cardiopulmonary resuscitation (CPR) was initiated with assisting of respirations. Without any medications provided, the patient did have spontaneous return of pulse. It appears that she had been down for an estimated total of 17 to 18 minutes. On arrival to the emergency room, she was intubated. Blood pressure remains in the 100 range systolic. She has had no significant neurologic recovery. She is having myoclonic jerking, lip smacking. She is on mechanical ventilation without clinical response. History is provided by , who states he is her healthcare proxy and that they are legally . Upon review of the chart, it appears that the patient has had multiple recent episodes for acute respiratory failure with hypoxia. Previous admission seemed to be for volume overload and pulmonary edema. PAST MEDICAL HISTORY: 1. Vasculopathy with difficulty with access, apparently had a right IJ tunnel catheter placed with output flow and therefore left tunneled catheter was placed for dialysis AV fistula. Recently catheter was placed for peritoneal dialysis. 2. End-stage renal disease on hemodialysis, missed dialysis today. 3. Chronic obstructive pulmonary disease. 4. Pulmonary hypertension with history of right heart failure. 5. Severe systemic hypertension. 6. Peripheral vascular disease. 7. History of AAA status post grafting. 8. Coronary artery disease on chronic Imdur therapy. 9. Depression. 10. Severe cardiomegaly. PHYSICAL EXAMINATION: The patient is hypothermic with a urinary catheter room temperature of 95, pulse is 101, respiratory rate is 14 mL. Blood pressure is 95/56 with a mean arterial pressure 69, oxygen saturations 98% on 0.50 FIO2. No medications were received in the emergency room. No antibiotics. GENERAL: The patient does have decerebrate posturing at times, has moderate amount of clonus on exam. Has no intentional movement. HEENT: Sclerae are edematous. Right pupil is reactive to light. Left pupil is more sluggish, barely reactive. Corneals are absent. Oculocephalic is abnormal. There is no scleral icterus. Tongue is midline. Mucous membranes are moist. Endotracheal tube is in place. Neck is supple. No tracheal deviation or mass. There is a left tunneled catheter. Carotid pulses are adequate. NECK: No cervical, supraclavicular or axillary adenopathy. CARDIAC: Regular S1, S2, I do not auscultate any murmur, rubs or gallop. PULMONARY: Decreased breath sounds throughout. There is no dullness to percussion. There is no accessory muscle use. ABDOMEN: Slightly distended, hypoactive bowel sounds are present. Peritoneal dialysis catheter is in place in the right upper quadrant. No hernia. No discernible hepatosplenomegaly. EXTREMITIES: No cyanosis or clubbing. No recent evidence of trauma. There is an IO in the left mid tibia. Skin is pale without rash, jaundice, bruising. NEUROLOGIC: Myoclonus is present. Posturing is present. OTHER NEUROLOGIC EXAMINATION: As mentioned above. No obvious seizure activity. LABORATORY EVALUATION: Shows an elevated white count of 19.7, a hemoglobin of 10.9, platelet count of 155 and 85% neutrophilia a chemistry panel is still pending. Lactate was measured at 4.7. Arterial blood gas shows a primary metabolic acidosis with a pH of 7.29, pCO2 of 33, pO2 of 350. Chest x-ray shows severe cardiomegaly, bilateral hilar fullness, likely representing enlarged pulmonary arteries, there is small right pleural effusion and diffuse pulmonary edema. I did review the CT angio from 03/12/2018, which showed bilateral effusions, significant pulmonary edema and cardiomegaly without evidence of thromboembolic disease. Electrocardiogram (EKG) shows nonspecific ST abnormalities without ST elevation. There is evidence of left ventricular hypertrophy. Her QRS duration is less than 100, QTC is 391. IMPRESSION: 1. Status post cardiac arrest, appears to be secondary to pulmonary edema. The patient is now intubated. We will initiate dialysis as soon as possible. 2. Metabolic acidosis likely from renal failure, lactic acidosis. 3. Leukocytosis likely from arrest; however, cannot rule out the possibility of sepsis. Therefore, we will cover with broad-spectrum antibiotics that are renally dosed. Obtain cultures with blood cultures and peritoneal fluid culture, as there was a recent peritoneal catheter placed. 4. Coma with possible neurologic devastation. We will continue to monitor for seizure activity and monitor for neurologic improvement. Currently, patient is on no sedation. 5. Chronic obstructive pulmonary disease (COPD). We will continue nebulized therapy through the ventilator. Overall poor prognosis given the comorbidities and current presentation with the neurologic findings on exam. MTDD
[2018-04-16] MEDS ORDERED: ISOSORBIDE MON. (IMDUR) 60 MG XR TAB PO ONE (23:45)
[2018-04-16] MEDS ORDERED: MINOXIDIL 2.5 MG TAB PO ONE (23:45)
[2018-04-16] MEDS ORDERED: amLODIPine 10 MG TAB PO ONE (23:45)
[2018-04-16] MEDS ORDERED: LABETALOL 200 MG TAB PO ONE (23:45)
[2018-04-16] MEDS ORDERED: **hydrALAZINE** 50 MG TAB PO ONE (23:45)
[2018-04-17] VITALS (58 sets, daily range): BP systolic 115–235; BP diastolic 55–106; O2SAT 96–100
[2018-04-17] MEDS: PROPOFOL 1,000 MG in APPROPRIATE DILUENT 1 EA IV SCH ×4 (00:14→22:18)
[2018-04-17] MEDS ORDERED: niCARdipine IV 40 MG in APPROPRIATE DILUENT 1 EA IV SCH (02:30)
[2018-04-17] MEDS ORDERED: METAL LOCK LOOP XX ONE (05:53)
[2018-04-17 06:12] LABS: IONIZED CALCIUM 4.8 MG/DL (4.5-5.3)
[2018-04-17 06:21] LABS: HEMATOCRIT 31.5 % (36.0-47.0); MEAN CORPUSCULAR HGB CONC 31.7 g/dl (32.0-36.5); MEAN CORPUSCULAR VOLUME 94.6 fl (80.0-96.0); PLATELET COUNT, AUTOMATED 137 10^3/uL (150-450); RED BLOOD COUNT 3.33 10^6/uL (4.00-5.40)
[2018-04-17 06:26] LABS: ABG BASE EXCESS 1.7 (-2.0-2.0); ABG HCO3 24.7 MEQ/L (22.0-26.0); ABG O2 SATURATION 96.8 % (95.0-99.0); ABG PARTIAL PRESSURE CO2 33.1 mmHg (35.0-45.0); ABG PARTIAL PRESSURE O2 84.4 mmHg (75.0-100.0); ABG TOTAL CO2 25.7 MEQ/L (22.0-29.0)
[2018-04-17 06:36] LABS: INR 1.25; PARTIAL THROMBOPLASTIN TIME 32.7 SECONDS (25.4-37.6); PROTHROMBIN TIME 15.9 SECONDS (12.1-14.4)
[2018-04-17 06:41] LABS: CALCIUM LEVEL 9.2 MG/DL (8.5-10.1); CREATININE FOR GFR 3.68 MG/DL (0.55-1.30); GLOMERULAR FILTRATION RATE 13.7 (>51); MAGNESIUM LEVEL 2.1 MG/DL (1.8-2.4)
[2018-04-17] MEDS: HEPARIN SOD (PORCINE) 5000 UNITS/ML VIAL SC SCH ×3 (06:44→20:57)
[2018-04-17] MEDS: IPRATROPIUM 0.5MG/ALBUTEROL 2.5MG INH SOL UD 3ML (DUONEB)(J7620) NEB SCH ×4 (07:32→20:00)
[2018-04-17] MEDS: **hydrALAZINE** 50 MG TAB PO SCH ×3 (09:00→22:19)
[2018-04-17] MEDS: CHLORHEXIDINE GLUCONATE 0.12 % 15ML UDC (PERIDEX ORAL RINSE) MT SCH ×2 (09:00→20:57)
[2018-04-17] MEDS: amLODIPine 10 MG TAB PO SCH (09:00)
[2018-04-17] MEDS: LABETALOL 200 MG TAB PO SCH ×2 (09:00→20:58)
[2018-04-17] MEDS: MINOXIDIL 2.5 MG TAB PO SCH ×2 (09:00→23:36)
[2018-04-17] MEDS ORDERED: amLODIPine 5 MG TAB PO SCH ×2 (09:00)
[2018-04-17] MEDS: ISOSORBIDE MON. (IMDUR) 60 MG XR TAB PO SCH (09:00)
--- NOTE | 2018-04-17 09:10 | PHACANCOPD ---
PHARMACY VANCOMYCIN DOSING Pt Demographics Demographics Patient Age:53 , Weight:59.200 , Gender: female Adjusted Body Weight Date: 04/16/18, Adjusted Body Weight: Kg Events Past 24 Hours Events Past 24 Hours: NO: Dialysis, Diuretic Therapy, Change in CrCl, Fever, Elevation in WBC, Pending Diagnostics, Pending Procedures, Other Vancomycin Vancomycin indication: SEPSIS Vancomycin Target Ranges: 15-20 mcg/ml Vancomycin Load Y/N: Yes Load Dose Date Time Vancomycin Load Dose: 1g Date: 04/16/18 Time: 1814 Vancomycin Dose Date: 04/16/18. Current Vancomycin Dose: [intermittent based on random levels] Intermittent Dosing?: Yes Labs Labs Item Value Date Time Creatinine 3.68 MG/DL H 04/17/18 0600 Creatinine 5.46 MG/DL H 04/16/18 1924 Creatinine 5.42 MG/DL H 04/16/18 1824 White Blood Count 14.0 10^3/uL H 04/17/18 0600 White Blood Count 26.8 10^3/uL H 04/16/18 1924 White Blood Count 19.7 10^3/uL H 04/16/18 1647 Random Vancomycin Level 10.9 UG/ML 04/17/18 0600 Creatinine Clearance Date:04/16/18. Creatinine Clearance: . Pending Labs Vancomycin random level scheduled 04/17/18 @0500 Assessment and Plan Maintaining Current Dose?: No Reason for dose change: Trough too low Pharmacist Note Pharmacist Note 04/17/18: Random this AM resulted at 10.9mcg/ml. The pt has been started on CRRT. I have scheduled a Vanco 750mg dose for 1200 and another random for tomorrow AM. We will continue to monitor and adjust dose as needed. Date: 04/16/18. Pharmacist note: Day #1 empiric vancomycin therapy initiated with a 1g loading dose for the treatment of possible sepsis - aiming for a goal trough of 15-20mcg/ml. Patient presented in cardiac arrest with acute hypoxic respiratory failure, and is now intubated. Was recently admitted to [facility] 03/2018 for acute hypoxic respiratory failure 2/2 fluid overload. The patient has a PMH of CHF and COPD oxygen dependent on 1.5L O2 at home. The patient has been on chronic hemodialysis with a normal schedule of Tuesdays, , and Wednesday s - but missed today's session. It is noted that the patient also has a new PD catheter placed in the RLQ, but peritoneal dialysis has not yet been started. WBC and pulse are now currently elevated, and the patient is afebrile. Peritoneal fluid culture is pending. No PMH of MRSA, but does have a PMH of vanco use here at [facility] as recent as October 2017. No current H&P yet available. We w ill continue with intermittent dosing based on random levels at this point until a decision on further dialysis sessions is made. A random level has been scheduled to be drawn tomorrow with morning labs. We will continue to monitor and schedule further doses accordingly. JUSTICE GARCIA PHARMACY Apr 17, 2018 09:10
[2018-04-17] MEDS: levETIRAcetam INJection 500 MG in D5W MINI-BAG PLUS 100 ML IV SCH ×2 (10:32→20:32)
[2018-04-17] MEDS: PANTOPRAZOLE 40MG INJ (PROTONIX) (C9113) IV SCH (10:32)
[2018-04-17] MEDS ORDERED: VANCOMYCIN HCL 750 MG, VIAL MATE ADAPTER 1 EACH in D5W 250 ML IV ONE (12:00)
--- NOTE | 2018-04-17 12:28 | CCN ---
DATE: 04/16/2018 CRITICAL CARE NOTE This is in addition to the critical care that was already provided. An additional 42 minutes was provided at bedside. The patient started to have agonal breathing and then became quite tachypneic, hypertensive with blood pressures over 230. The central venous pressure was high. She is in significant pulmonary edema. Will attempt dialysis as soon as possible to help with volume overload. I have given her propofol for sedation and hopefully this will help with decreasing blood pressure. During the acute episode, she was also given two doses of hydralazine. Blood pressure is starting to trend down, systolic approaching 200; down 30 points from 230. Overall the patient remains critically ill, in pulmonary edema. Her pressure is most consistent with respiratory arrest from pulmonary edema.
--- NOTE | 2018-04-17 12:28 | REP ---
REASON: Endotracheal tube assessment. COMPARISON: 03/22/2018. The technique utilized in obtaining the radiograph has magnified the cardiac silhouette and accentuated the interstitial markings. There is an endotracheal tube seen the tip of which is in satisfactory position at the level of the aortic knob. There is cardiomegaly accentuated by technique. Diffuse interstitial opacities are seen throughout the lung [place] accentuated by technique probably unchanged from the prior exam. There is a right pleural effusion essentially unchanged from the prior exam when the technical differences between the examinations are taken into consideration. There is double lumen central venous catheter which is unchanged. IMPRESSION: Endotracheal tube as described above. Other findings and chronic changes as described above. Electronically Signed by Rio Collins DO 04/17/2018 10:28 A
--- NOTE | 2018-04-17 12:29 | REP ---
Status post cardiac arrest, assess for anoxic brain damage. No priors for comparison. TECHNIQUE: 4.5 mm contiguous transaxial sections were obtained from the skull base to the cerebral convexities with thin cuts through the posterior fossa without the administration of intravenous contrast. FINDINGS: The ventricles and sulci are consistent with the patient's age. There are no extra-axial fluid collections. There is no mass effect. The deep cerebral white matter is consistent with the patient's age. The orbital and petrous structures , cerebellopontine angles, and posterior fossa are unremarkable. The sella turcica, cavernous, and paracavernous structures are essentially unremarkable. The visualized portions of the paranasal sinuses and mastoid air cells are clear. Images of the skull base show no gross abnormality. IMPRESSION: Essentially unremarkable CT examination of the brain. There is no CT evidence of diffuse cerebral edema secondary to anoxic brain injury. Electronically Signed by Rio Collins DO 04/17/2018 10:37 A
--- NOTE | 2018-04-17 12:29 | REP ---
REASON: Followup pulmonary edema. COMPARISON: Multiple, the latest 04/16/2018. Nasogastric tube has been placed since the last exam. The tip is beneath the diaphragmatic surface of the left lung beyond the scope of the radiograph. The proximal port is seen distal to the GE junction. The endotracheal tube tip is unchanged remaining in satisfactory position. Double lumen left sided central venous catheter unchanged and again seen in the superior vena cava. Diffuse bilateral predominantly interstitial opacities have improved with the technical differences between the examinations taken into consideration. Bibasilar lung field opacities also appear to have improved. Cardiomediastinal silhouette is unchanged. Mild cardiomegaly is suspected accentuated by technique. There is no change in the osseous structures. IMPRESSION: Tubes and lines and improvement as described above. Electronically Signed by Rio Collins DO 04/17/2018 10:32 A
--- NOTE | 2018-04-17 12:30 | CCN ---
DATE: 04/17/2018 CRITICAL CARE NOTE Critical care time was 1 hour; this excludes all procedures. At bedside this morning on sedation vacation, the patient has continuous tonic-clonic movement. No purposeful movement. She was having difficulty with significant swings in blood pressure. The cheese maker was called with these fluctuations, I was not, and the cheese maker had appropriately managed the patient with antihypertensives. This morning, the patient's blood pressure is systolic of 158, her oxygen saturation is much better. However, her neurologic status has failed to improve. Temperature is 96.4, pulse is 71, respiratory rate is 24-27. The patient is overbreathing the ventilator. Blood pressure ranging 115 to the peak of 243 systolic. Apparently 3 liters had been removed with continuous veno-venous hemodialysis (CVVHD). General: The patient is on mechanical ventilation. Propofol was used to assist with blood pressure management and in addition to the tonic-clonic movements and to allow easier mechanical ventilation. This was removed for exam. HEENT: Pupils are 6 mm, reactive to light bilaterally. There is no corneal reflex, and there is an abnormal oculocephalic reflex. Tongue is midline. Patient continuing to have myoclonic jerking. Neck is supple. No tracheal deviation. No mass. Lymph: No cervical, supraclavicular, or axillary adenopathy. Cardiac: Regular S1, S2 without audible murmur, rub or gallop. There is elevated jugular venous pressure (JVP). Pulmonary: Mechanical breath sounds. I do not auscultate any rales, rhonchi or wheezes. There is a slight prolongation in the expiratory phase. Abdomen is soft, nontender, nondistended. No hepatosplenomegaly. No masses or hernia. Extremities: No cyanosis, clubbing or edema. Extremities: Extremities are quite extended, difficult to assess myoclonus as she is quite stiff. She is having myoclonic jerking. Pupillary, corneal and oculocephalic reflexes as mentioned above. Musculoskeletal: Some minimal muscle wasting. No joint effusion. No evidence of recent trauma. LABORATORY EVALUATION: Shows a sodium 140, potassium 4.0, chloride 103, bicarbonate of 26, BUN of 27, creatinine of 3.68 with a glucose of 121, white blood cell count 14.0, hemoglobin of 10, platelet count of 137, INR is 1.25. Arterial blood gas shows a pH of 7.49, pCO2 of 33, pAO2 of 84. Chest x-ray shows significant improvement in the pulmonary edema. IMPRESSION: 1. Coma with what appears to be neurologic devastation, anoxic brain injury, myoclonic activity. I will add Keppra in case this is seizure activity. Continue propofol for treatment of the clonus and obtain an EEG. Will discuss the overall poor prognosis with the . 2. Status post respiratory arrest from pulmonary edema. Significant improvement with dialysis. Appreciate nephrology's input. 3. Hypertension. Difficult to manage. The patient has known severe hypertension that has been traditionally difficult to manage; however, in the face of probable neurologic injury, her blood pressure may have a extreme fluctuations. IMPRESSION: Overall poor prognosis, likely severe anoxic brain injury. We will have family discussions this morning in regards to previously expressed wishes of the patient. The patient requires critical care due to the severity of her neurologic injury and the need for mechanical ventilation. LILIAM
--- NOTE | 2018-04-17 15:22 | ECGEPIP ---
Stationary ECG Study [facility] - ED Test Date: 2018-04-16 Pat Name: SARANYA LOPEZ Department: Room: - Gender: F Survey Data Technician: : 1965 Requested By: CHRISTOPHE Mercer Order Number: [id number] Reading MD: Lolly Mary Measurements Intervals [place] Rate: 108 P: 71 NH: 158 QRS: 10 QRSD: 97 T: 120 QT: 327 QTc: 440 Interpretive Statements SINUS TACHYCARDIA POSSIBLE LEFT ATRIAL ENLARGEMENT LEFT VENTRICULAR HYPERTROPHY AND ST-T CHANGE IVCD NONSPECIFIC ST T WAVE CHANGES CW 03/07/[address] T WAVE CHANGES Electronically Signed On 04-17-2018 15:22:22 EST by Lolly Mary
--- NOTE | 2018-04-17 19:15 | CR ---
DATE OF CONSULTATION: 04/17/2018 REFERRING PHYSICIAN: Dr. 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 The patient is a 53-year-old woman with history of end-stage renal disease on hemodialysis who was at her baseline state of health until yesterday when she was walking and helping inside the house. She had developed a cough and had increased shortness of breath in the morning of the day of admission. She was not feeling well. She did not go for dialysis. Her shortness of breath became progressively worse. Her increased her oxygen. Ambulance was eventually called. The patient tried continuous positive airway pressure (C-PAP) in the ambulance but she was fighting this and then had a cardiac arrest. The patient was in a pulseless electrical activity in the ambulance. Cardiopulmonary resuscitation (CPR) was initiated with assistance to her breathing. The patient did have a spontaneous return of pulse. The patient had been down for estimated 17-18 minutes. On arrival in the emergency department she was intubated. Blood pressure was around systolic 100. There was no signs of neurological recovery. The patient continued to have myoclonic jerks with lip smacking. The patient has been on mechanical ventilator with only as needed sedation to decrease her myoclonus. Nurses have noted that the patient sometimes breathes over the vent but does not have corneal reflex or gag reflex. She had a CT scan of head and EEG today. During the latter part of EEG, propofol was restarted to decrease myoclonus which was affecting quality of EEG as it was too frequent. Please see separate report of EEG. The patient is unresponsive. History was obtained from electronic medical records, patient's family and nurses. PAST MEDICAL HISTORY: End-stage renal disease and the patient has been on hemodialysis but missed her dialysis yesterday, chronic obstructive pulmonary disease (COPD), pulmonary hypertension with history of right heart failure, severe systemic hypertension, peripheral arterial disease, history of abdominal aortic aneurysm status post graft, coronary artery disease, depression, cardiomegaly, arteriovenous (AV) fistula placement for dialysis right internal jugular venous line. SOCIAL HISTORY: Could not be obtained. FAMILY HISTORY: Could not be obtained. REVIEW OF SYSTEMS: Could not be obtained. CURRENT MEDICATIONS: Were reviewed from electronic medical records. PHYSICAL EXAMINATION: Temperature 98.6, pulse 82, respiratory rate 25, blood pressure 144/63, 98% saturation on mechanical ventilation with 40% FiO2. Heart: Regular rate and rhythm. Lungs: Clear to auscultation. Abdomen: Soft, nontender, nondistended. No pedal edema. No musculoskeletal abnormalities or rash. No signs of meningeal irritation. No tremor, but myoclonus is visible which has decreased due to propofol currently. Pupils are 6 mm bilaterally, reactive to light. There is no corneal or gag reflex. She has mild posturing with painful stimuli. She does not wake up to verbal or painful stimuli. She has bilateral Perry's and Babinski's signs in both feet. Deep tendon reflexes are absent. Sensation, cerebellar and gait testing could not be performed. DIAGNOSTIC STUDIES: CT scan of head was reviewed and showed mild cerebral edema with decreased sulci and slit like ventricles bilaterally. Official radiology report stated no acute disease. ASSESSMENT: 1. 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 2. 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 PLAN: 1. Await results of her current EEG. 2. After a detailed discussion with the patient's family, they requested repeat CT scan of head tomorrow and repeat EEG tomorrow. We will examine her tomorrow as well. Will continue supportive care per wishes of family for now. Her overall prognosis is guarded.
[2018-04-17] MEDS: MEROPENEM INJ 500 MG in APPROPRIATE DILUENT 1 EA IV SCH (19:45)
--- NOTE | 2018-04-17 21:20 | CR ---
DATE OF CONSULTATION: 04/16/2018 REQUESTING PHYSICIAN: Dr. George Gonzalez REASON FOR CONSULTATION: Management of end-stage renal disease on hemodialysis in this patient who is status post pulseless electrical activity (PEA) cardiac arrest. HISTORY OF PRESENT ILLNESS: Brigitte Persaud is a 53-year-old female with a lengthy and complicated past medical history, including diastolic congestive heart failure, chronic obstructive pulmonary disease (COPD), severe generalized vasculopathy, including peripheral arterial disease, abdominal aortic aneurysm status post graft and aortobifemoral bypass, renovascular hypertension, which has been extensively worked up in the past with hyperreninemia and known atherosclerotic renal artery stenosis and atrophic left kidney, status post nephrectomy, history of left adrenal nodule with low-dose dexamethasone suppression test with normal response, hypertensive heart disease, hypertensive cardiomyopathy, atherosclerotic carotid disease, history of recurrent upper gastrointestinal (GI) bleed with gastric ulcers. Patient became a chronic hemodialysis patient in October of 2017. She is on a Wednesday, , and Wednesday schedule via a left upper extremity arteriovenous (AV) fistula. She still has a tunneled PermaCath present as well, and patient was in the process of planning to switch over to peritoneal dialysis; hence, she has a peritoneal dialysis catheter, which was recently placed on 04/06/2018. Apparently, patient awoke this morning short of breath but then decided not to go for dialysis treatment today despite the encouragement of her . Her shortness of breath persisted and then became more progressive. Her gave her supplemental oxygen, but patient felt progressively short of breath and eventually emergency medical service (EMS) was called. Patient had pulseless electrical activity arrest in the ambulance. Cardiopulmonary resuscitation (CPR) was initiated and, on arrival to the emergency room, she was intubated. There was a return of spontaneous circulation without epinephrine administration. I was called to see the patient in the emergency room. Blood pressures were noted to be significantly soft, systolic about 90-110 in a patient whose baseline systolic is closer to 180 and 190 despite multiple antihypertensive medications. She was noted to have myoclonic jerking, decerebrate posture, and lip smacking. PAST MEDICAL HISTORY: 1. Diastolic congestive heart failure. 2. COPD. 3. Severe generalized vasculopathy, including peripheral arterial disease, abdominal aortic aneurysm, status post graft and aortobifemoral bypass. 4. Renovascular hypertension with hyperreninemia and known atherosclerotic left renal artery stenosis and atrophic left kidney, status post nephrectomy. 5. History of left adrenal nodule with negative low-dose dexamethasone suppression test. 6. Hypertensive heart disease. 7. Hypertensive cardiomyopathy. 8. Atherosclerotic carotid disease. 9. History of recurrent GI bleed. 10. End-stage renal disease on hemodialysis since October 2017. End-stage renal disease (ESRD) secondary to hypertensive and vascular nephrosclerosis. 11. History of right-sided venous congestion due to obstruction of venous flow from PermaCath, which was then moved to the left side. 12. Status post left upper extremity AV fistula. 13. Status post peritoneal dialysis catheter placement. SOCIAL HISTORY: No alcohol or drug use. FAMILY HISTORY: Father of myocardial infarction ([place]) at age 66. Brother with history of [place]. Sister with history of hypertension. HOME MEDICATIONS: Reviewed. ALLERGIES: CEPHALEXIN, CIPROFLOXACIN, LIDOCAINE, PENICILLIN, SUDAFED, and BACTRIM. REVIEW OF SYSTEMS: Unable to obtain secondary to clinical condition. PHYSICAL EXAMINATION: Urinary catheter temperature 95, pulse 98, respiratory rate 22, blood pressure 104/61, saturating 96% on the ventilator on 50% FiO2. GENERAL: Patient is intubated. There is significant decerebrate posturing. Pupils are sluggish to react. There is no scleral icterus. Tongue is midline. Endotracheal tube is in place. Oral mucosa is moist. There is lip smacking present. There is a left tunneled dialysis catheter. Jugular veins are elevated while she is lying flat. CARDIAC: Regular S1, S2. PULMONARY: Coarse breath sounds bilaterally. There are no overt crackles or wheeze. ABDOMEN: There is old healed incision. There is a peritoneal dialysis (PD) catheter in place on the right. There are a few bowel sounds. GENITOURINARY: Shows Bennett catheter with some urine. EXTREMITIES: There is no pitting edema. There is a left upper extremity fistula with thrill and bruit. There is an intraosseous line in the right mid tibia. NEUROLOGIC: Plantar flexion, decerebrate posturing, lip smacking, and myoclonic jerking. LABS: White count 19.7, hemoglobin 10.9, platelets 155. Sodium 139, potassium 5.0, bicarbonate 25, BUN 37, lactic 4.7, BNP greater than 175,000. A pH 7.28, pCO2 of 32, pO2 of 350. Chest x-ray 04/16/2018: Cardiomegaly and diffuse interstitial opacities and a right pleural effusion. INPATIENT MEDICATIONS: Patient has not yet received any medications in the emergency room. PROBLEMS: 1. Status post pulseless electrical activity cardiac arrest with recent missed dialysis session and chest x-ray with pulmonary edema pattern. Patient is intubated. Exact downtime is unknown to me. There is concern for anoxic brain injury. In terms of dialysis, given the recent cardiac arrest and concern of anoxic encephalopathy, continuous venovenous hemodiafiltration (CVVHDF) will be the modality of choice over intermittent hemodialysis. I also note that her blood pressure is significantly soft as compared to her usual baseline. 2. End-stage renal disease on hemodialysis. Patient is on a Wednesday, , Wednesday schedule. She has been on hemodialysis since October of 2017. Presently dialyzing via the left upper extremity fistula; however, her tunneled PermaCath has not yet been removed. She was planning to switch over to peritoneal dialysis; hence, she also has a recently placed peritoneal dialysis catheter. She is significantly volume overloaded with pulmonary edema on chest x-ray and elevated brain natriuretic peptide (BNP). We will plan for CVVHDF via the tunneled dialysis catheter. Orders are written for fluid removal in a variable fashion depending on her mean arterial pressures. CVVHDF will be anticoagulant-free. 3. Borderline hypotension in this patient with a history of severe resistant hypertension who was on a significant home antihypertensive regimen of seven blood pressure medications and whose usual baseline systolic is above 160, now with a blood pressure systolic of 90 to about 110, status post cardiac arrest and concern of anoxic brain injury. Her antihypertensives are all being held. CVVHDF will be the safer modality in this setting, and we will remove fluid as tolerated by her hemodynamics. Nursing staff will call me with fluctuations in blood pressure. 4. Anoxic encephalopathy. Patient with decerebrate posture. Downtime for the cardiac arrest is unknown to me. Total critical care time spent in the management of this patient at the bedside was 40 minutes. ADDENDUM: Intensive care unit (ICU) nurse called me to report overnight patient's blood pressure went up to systolic 230 and was persistently elevated. We increased fluid removal from CVVHDF to target net negative 250 mL/h, and she was also resumed on her home antihypertensives. Blood pressure still remained systolic greater than 200, at which point nicardipine infusion was started and nursing staff was instructed to titrate for a goal systolic around 170 and holding parameters were written with oral hypertensives. Edited: gerda 04/21/2018 [id number]
[2018-04-18] VITALS (26 sets, daily range): BP systolic 144–205; BP diastolic 66–85; O2SAT 98
[2018-04-18] MEDS: PROPOFOL 1,000 MG in APPROPRIATE DILUENT 1 EA IV SCH ×5 (04:36→22:27)
[2018-04-18 05:14] LABS: HEMATOCRIT 29.8 % (36.0-47.0); HEMOGLOBIN 9.8 g/dl (12.0-15.5); MEAN CORPUSCULAR HEMOGLOBIN 30.3 pg (27.0-33.0); MEAN CORPUSCULAR HGB CONC 32.9 g/dl (32.0-36.5); MEAN CORPUSCULAR VOLUME 92.3 fl (80.0-96.0); PLATELET COUNT, AUTOMATED 132 10^3/uL (150-450); RED BLOOD COUNT 3.23 10^6/uL (4.00-5.40); WHITE BLOOD COUNT 8.7 10^3/uL (4.0-10.0)
[2018-04-18 05:38] LABS: ABG BASE EXCESS -1.6 (-2.0-2.0); ABG HCO3 21.5 MEQ/L (22.0-26.0); ABG O2 SATURATION 98.2 % (95.0-99.0); ABG PARTIAL PRESSURE CO2 30.5 mmHg (35.0-45.0); ABG PARTIAL PRESSURE O2 108.3 mmHg (75.0-100.0); ABG STANDARD HCO3 23.2 MEQ/L (22.0-26.0); ABG TOTAL CO2 22.4 MEQ/L (22.0-29.0); ABG pH (ARTERIAL) 7.465 UNITS (7.350-7.450)
[2018-04-18 05:40] LABS: CALCIUM LEVEL 8.6 MG/DL (8.5-10.1); CREATININE FOR GFR 4.82 MG/DL (0.55-1.30); GLOMERULAR FILTRATION RATE 10.1 (>51); MAGNESIUM LEVEL 2.3 MG/DL (1.8-2.4); POTASSIUM SERUM 4.3 MEQ/L (3.5-5.1)
[2018-04-18] MEDS: HEPARIN SOD (PORCINE) 5000 UNITS/ML VIAL SC SCH ×3 (06:42→22:16)
[2018-04-18] MEDS: IPRATROPIUM 0.5MG/ALBUTEROL 2.5MG INH SOL UD 3ML (DUONEB)(J7620) NEB SCH ×5 (07:12→19:34)
--- NOTE | 2018-04-18 07:19 | IPN ---
DATE OF VISIT: 04/17/2018 SUBJECTIVE: I was called overnight regarding the patient's uncontrolled hypertension, systolic was greater than 200 persistently. We increased the fluid removal on continuous venovenous hemofiltration (CVVHDF) for net negative 250 mL per hour. She was also resumed on her home antihypertensives, minoxidil, hydralazine, labetalol, amlodipine, Isosorbide. Despite this, blood pressure still remained systolic around 220 and subsequently the patient was started on nicardipine infusion for goal blood pressure of systolic 160-170. She tolerated fluid removal well, net negative overnight 2.7 liters and blood pressures subsequently this morning fell to systolic 110 at which point we stopped removal fluid from CVVHDF and dialysis was discontinued. She remains on propofol infusion. Her FiO2 requirements have decreased; however there is no improvement in her neurologic status. REVIEW OF SYSTEMS: Unable to obtain secondary to clinical condition. PHYSICAL EXAMINATION: VITAL SIGNS: Temperature 97, pulse 94, respiratory rate 21, blood pressure 143/64, saturating 97% on 30% FiO2. Intake yesterday was 400, CVVHDF removed at 2.7 liters. GENERAL: The patient is intubated and sedated. There is ongoing myoclonic jerking. NECK: Supple. Endotracheal tube (ETT) in place. Jugular venous pulsations have improved since yesterday. Left sided tunneled catheter in place. CARDIAC: S1, S2, regular rate and rhythm. PULMONARY: Coarse breath sounds, no audible rales or wheeze. ABDOMEN: Soft, I appreciate hypoactive bowel sounds. There is a peritoneal dialysis (PD) catheter on the right. EXTREMITIES: Negative for cyanosis, clubbing or edema. Left upper extremity fistula with thrill and bruit. There is a central line present in the right femoral. LABORATORY DATA: Sodium 140, potassium 4.0, bicarbonate 26, lactic acid 1.8, hemoglobin 10.0. CT of the head on 04/17: No cerebral edema noted as of yet. INPATIENT MEDICATIONS: - propofol infusion - Keppra 500 mg intravenous (IV) twice a day - meropenem 500 mg IV daily - Cardene drip has been discontinued - vancomycin 1.75 grams IV times one - amlodipine 10 mg by mouth times one - amlodipine 10 mg by mouth daily with holding parameters - heparin 5000 units every 8 - hydralazine 100 mg by mouth three times a day with holding parameters - Isosorbide mononitrate extended release 60 mg by mouth daily with holding parameters - labetalol 400 mg by mouth twice a day - minoxidil 5 mg by mouth twice a day - Protonix 40 mg IV daily PROBLEMS: 1. Endstage renal disease on hemodialysis in this patient with a missed dialysis treatment on Wednesday who subsequently had respiratory distress and pulseless electrical arrest (PEA) in the setting of pulmonary edema with unknown down time and with probably anoxic brain injury. She received continuous venovenous hemofiltration (CVVHDF) overnight with about 2.7 liters of fluid removed and her CVVHDF is discontinued this morning and she will be reassessed for dialysis needs on Wednesday. 2. Pulmonary edema. Improvement with dialysis and fluid removal. Her FiO2 requirements have decreased. Her blood gas is noted. There is no significant intake at present and we will reassess her for dialysis in the coming 24 hours. 3. Hypertension. Historically extremely difficult to manage. This patient has significantly resistant hypertension. She is on seven antihypertensives at home. Her blood pressure had initially been hypotensive in the emergency room last night but then khris to systolic greater than 200 overnight. She was resumed on her home regimen with holding parameters. Tekturna has not been given, it is not on hospital formulary; if needed the family can bring it in. She also received a nicardipine infusion overnight for control of blood pressure. We were targeting a 25% decrease. This morning when her systolic fell to 120, CVVHDF was discontinued. Presently her systolic is ranging from 140s-160s which is acceptable. 4. Anoxic encephalopathy. CT of the head noted. Electroencephalogram (EEG) is pending. Defer to the airworthiness safety inspector.
--- NOTE | 2018-04-18 08:01 | REP ---
Clinical: Shortness of breath/pulmonary edema . Comparison: 04/17/2018 . Findings: Endotracheal tube 3 cm above the marichuy. Double-lumen dialysis catheter with tip in the SVC. Nasogastric tube courses below left hemidiaphragm. The mediastinum and cardiac silhouette are stable and within normal limits for portable technique. The lung luns[place] are clear without acute consolidation, effusion, or pneumothorax. Mildly increased markings may be secondary to technique versus mild pulmonary edema. Skeletal structures are intact. Impression: No acute cardiopulmonary process appreciated. Electronically Signed by Rashawn Mcmahan MD 04/18/2018 07:52 A
--- NOTE | 2018-04-18 08:25 | RO ---
DATE OF PROCEDURE: 04/16/2018 PREPROCEDURE DIAGNOSIS: Shock. POSTPROCEDURE DIAGNOSIS: Shock. PROCEDURE: Right femoral triple-lumen catheter placement. PROCEDURALIST: Serafin Owen DO MILLWRIGHT SUPERVISOR: None. ANESTHESIA: Patient comatose The procedure was deemed urgent. I have already discussed the possibility of a need for a central line placed femorally with the and we had discussed the risks of the procedure previously and he had already given me consent verbally. The right femoral vein was prepped and draped in a sterile manner with chlorhexidine and full barrier precaution. The [place] syringe was introduced into the femoral vein on the first pass with return of venous blood flow. Wire was fed through the needle and the needle was removed. A nona in the skin was made and the triple-lumen catheter was placed via modified Seldinger technique. This was sutured in. Central venous pressure off this line was above 20. Ranging usually 22-25 at end expiration. Triple-lumen catheter was then sutured into place. There was minimal oozing despite it being only one puncture. Surgicel was placed around the site after pressure was applied for a few minutes. Sterile impregnated dressing was applied over the site. All three ports returned venous blood flow and flushed easily. There are no observed complications. JOHN PAULD
[2018-04-18] MEDS: ISOSORBIDE MON. (IMDUR) 60 MG XR TAB PO SCH (09:00)
[2018-04-18] MEDS: amLODIPine 10 MG TAB PO SCH (09:05)
[2018-04-18] MEDS: **hydrALAZINE** 50 MG TAB PO SCH ×3 (09:05→20:28)
[2018-04-18] MEDS: PANTOPRAZOLE 40MG INJ (PROTONIX) (C9113) IV SCH (09:06)
[2018-04-18] MEDS: levETIRAcetam INJection 500 MG in D5W MINI-BAG PLUS 100 ML IV SCH ×2 (09:06→20:28)
--- NOTE | 2018-04-18 10:11 | EEG ---
DATE OF ELECTROENCEPHALOGRAM (EEG): 04/17/2018 REFERRING PHYSICIAN: Dr. Serafin Owen DIAGNOSIS: Myoclonic jerks, status post cardiac arrest and coma. EEG NUMBER: [id number]. HISTORY: The patient is a 53-year-old woman with history of end-stage renal disease who is admitted at [facility] due to cardiac arrest followed by coma and generalized myoclonic jerks. This EEG was done to rule out epileptic potential and assess degree of encephalopathy. The patient was off any sedation in the first half of this EEG. Due to frequent myoclonic jerks causing muscle artifact, she was briefly started on propofol in the second half of this EEG. She is currently on Keppra, nicardipine, vancomycin, meropenem, minoxidil, amlodipine, hydralazine, labetalol, etc. TECHNICAL DESCRIPTION: This digital EEG was recorded by 21 scalp, ear, and two electrocardiogram (EKG) electrodes and was reviewed in bipolar and referential montages following reformatting in 10-20 International Electrode Placement System. INTERPRETATION: The patient was noted to be in mostly drowsy state during this EEG. She remained unresponsive. She is on mechanical ventilator. Background rhythm consisted of 3-4 Hz delta activity measuring 15-30 microvolts in amplitude. Frequent muscle artifact was noted due to myoclonic jerks in the first half of this EEG. No sleep was seen. Photic stimulation remained unremarkable. During the second half of this EEG, the patient was started on propofol due to frequent myoclonic jerks. A subtle burst suppression pattern was noted, which can be due to medication effect, in the second half of this EEG. No focal, lateralizing, or epileptiform abnormalities were seen. EKG revealed normal sinus rhythm. CONCLUSION: This EEG in an unresponsive patient on mechanical ventilation is abnormal due to presence of generalized slowing and myoclonic jerks causing muscle artifact consistent with nonspecific diffuse cerebral dysfunction, such as seen in encephalopathy due to multiple potential causes, including hypoxic, ischemic, metabolic, toxic, or multifocal structural brain abnormalities. Subtle burst suppression pattern in second half of this EEG is likely due to medication effect. Clinical correlation is recommended.
--- NOTE | 2018-04-18 10:31 | REP ---
CT Head without contrast HISTORY: Anoxic injury COMPARISON: 04/17/2018 There is no intraparenchymal hemorrhage, acute infarct, mass or midline shift. The ventricular system is normal in appearance. There is no extra cerebral collection. There is no fracture. The visualized sinuses are clear. IMPRESSION: There is no intracranial lesion. Electronically Signed by Glenn Cannon MD 04/18/2018 10:23 A
--- NOTE | 2018-04-18 10:38 | CCN ---
DATE: 04/18/2018 Ms. Persaud was seen in the intensive care unit (ICU). She remains overall unchanged. She is not nonresponsive. She remains afebrile and her white count is 8.7. Sedation vacation was done, and the patient does have continuous tonic-clonic movement. The patient continues to have elevated blood pressure, although blood pressures this morning is systolically in the 160s. This continues to be monitored. She is being followed by nephrology. She remains on ventilator. PHYSICAL EXAMINATION: GENERAL: The patient is on mechanical ventilation. She is nonresponsive. Sedation vacation is performed and the patient does have increased tonic-clonic movements. HEENT: Pupils are reactive to light bilaterally. There is no corneal reflex. NECK: Neck is supple. No tracheal deviation. There is elevated jugular venous pressure. No cervical adenopathy. Trachea is midline. CARDIAC: S1, S2. PULMONARY: No wheezes, rales or rhonchi. The patient is on mechanical ventilation. ABDOMEN: Soft, nontender. No significant bowel sounds are heard. The patient does appear to have an abdominal bruit. EXTREMITIES: No cyanosis, clubbing or edema. Extremities are stiff. The patient does have some myoclonic jerking. Examination of her right femoral central line site reveals no erythema or signs of infection at the site. LABORATORY DATA WBC 8.7, hemoglobin 9.8, hematocrit 29.8, platelets 132. Sodium 135, potassium 4.3, chloride 98, carbon dioxide 25, anion gap is 12, BUN is 41, creatinine is 4.82, glucose 102, calcium 8.6, magnesium 2.3. Blood gas showed pH is 7.465, pCO2 is 30.5, pO2 is 108.3, HCO3 is 21.5. Chest x-ray showed the endotracheal tube is approximately 5 cm above the marichuy. There is increased vascular markings indicative of pulmonary edema. There is some cephalization. The costophrenic angles are clear. There are no new infiltrates. No pneumothorax. ASSESSMENT AND PLAN: 1. Anoxic brain injury. The patient is being followed by neurology. Dr. Alcaraz plans on an EEG and a head CT today. Keppra has been added for seizure prophylaxis. The patient is on propofol for treatment of clonus. 2. Acute respiratory failure requiring mechanical ventilation. Patient is on mechanical ventilation set on volume control. Still cannot come off the ventilator as she cannot protect her airway. Will continue to monitor closely. 3. Status post cardiac arrest. The patient improved with dialysis. Nephrology is following. 4. Acute pulmonary edema. Improvement with initial diuretics. Continue to monitor. 5. Hypertension. Difficult to manage. The patient has a history of severe hypertension. In the face of her probable neurologic injury, her blood pressure may continue to have extreme fluctuations. Appreciate nephrology assistance. 6. End-stage renal disease. Nephrology is following. The patient is hemodialysis dependent. DISPOSITION: Our plan was to stop the patient's antibiotics as she has remained afebrile and white count has been good. There are no signs of infection. Additionally, we discussed starting tube feeds and placing MPO boots, however, when discussed with the patient's , he states he is considering withdrawing care pending the results of the patient's EEG and head CT that are scheduled for later on today. Therefore, we will hold off on starting tube feeds or the MPO boots, however, if the patient's family decides that they wish to continue with care then would consider proceeding with the feeding and the MPO boots. Family will let us know their ultimate decision later on today. Total critical care time was 52 minutes. MTDD
[2018-04-18] MEDS: CHLORHEXIDINE GLUCONATE 0.12 % 15ML UDC (PERIDEX ORAL RINSE) MT SCH ×2 (11:55→20:27)
[2018-04-18] MEDS: LABETALOL 200 MG TAB PO SCH ×2 (11:56→22:17)
[2018-04-18] MEDS: MINOXIDIL 2.5 MG TAB PO SCH (11:56)
--- NOTE | 2018-04-18 13:21 | IPN ---
DATE: 04/18/2018 SUBJECTIVE: The patient is seen and examined this morning at the bedside in the intensive care unit (ICU). Her is present at the bedside. The patient continues on Propofol sedation and was evaluated by neurology yesterday and had a repeat CT of the head and pending a repeat electroencephalogram (EEG) today. Her indicates to me that he is considering withdrawal of care pending further followup discussion with neurology later on today, "she would not want to live like this." REVIEW OF SYSTEMS: Unable to be obtained secondary to the critical condition. PHYSICAL EXAMINATION: VITAL SIGNS: Temperature 99.7, pulse 85, respiratory rate 21, blood pressure 171/75, saturating 99% on 30% FiO2. Intake yesterday was 640. Weight on the bed scale today is 53.5 kg. GENERAL: The patient is intubated and sedated. NECK: Supple. Endotracheal tube (ETT) and orogastric tube are in place. There is a left sided tunneled catheter. Jugular venous pressure is mildly elevated. CARDIAC: Heart sounds are regular. S1, S2. PULMONARY: Clear to auscultation bilaterally. No crackles or rubs. ABDOMEN: Soft and nondistended. There is a peritoneal dialysis (PD) catheter in place on the right. GENITOURINARY: Shows a right femoral line. There is a Bennett catheter. EXTREMITIES: Negative for edema. LABORATORY: White count 8.7, hemoglobin 9.8, platelets 132, sodium 135, potassium 4.3. Chest x-ray on 04/18/2018 showed lung luns[place] are clear without consolidation or effusion. There is some increased markings. INPATIENT MEDICATIONS: She continues on: - propofol infusion - Keppra 500 mg intravenous (IV) twice a day - meropenem and vancomycin have been stopped. - amlodipine - hydralazine - isosorbide - labetalol - minoxidil - Protonix PROBLEMS: 1. Endstage renal disease on hemodialysis in this patient with a missed dialysis treatment on Wednesday who subsequently had progressive respiratory distress and pulseless electrical arrest (PEA) in the setting of pulmonary edema and now with anoxic encephalopathy. There is no urgent indication for hemodialysis today. Her FiO2 requirements are stable. Blood gas is acceptable. Her electrolytes are acceptable as well. Chest x-ray shows significant improvement in pulmonary edema. Family indicates that they are considering withdrawal of care pending further discussion with neurology. We will hold off on dialysis unless family indicates otherwise. 2. Pulmonary edema. Improved with fluid removal. FiO2 is 30%. Blood gas is acceptable. She is not started on tube feeds and her daily intake is minimal. Hold off for dialysis today pending further family decision. 3. Anoxic encephalopathy. Neurology recommendations noted. She went for a repeat CT of the head today and is apparently going to have a repeat electroencephalogram (EEG) as well. Family will like to speak with the neurologist again today before coming to a decision regarding further goals of care. 4. Hypertension. Historically has very difficult to manage and keeping her systolic around 140s to 160s is probably reasonable. Holding parameters are per the echo technologist. No medication changes have been made today.
--- NOTE | 2018-04-18 14:25 | CCN ---
DATE: 04/18/2018 ADDENDUM: I conducted bedside rounds with TEJAS Shen, this morning. I agree with the documentation as described. The patient has poor neurologic prognosis with significant myoclonus without significant neurologic recovery. For supportive measures, we have decided to recommend nutrition, MPO boots and other life sustaining measures. However at this point in time the has declined such measures stating he is awaiting for the EEG and head CT today and if there is no significant improvement he will likely withdraw care. I greatly appreciate the input from Dr. Alcaraz and his evaluation. 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 Overall poor prognosis. The states the patient previously had expressed to him that she would not want to liver on life support and he is very well informed and is at bedside most of the day helping with decision making for this patient. He seems very reasonable and caring. We will therefore follow his direction as far as aggressiveness of this patient. LILIAM
[2018-04-18] MEDS ORDERED: ACETAMINOPHEN 650 MG SUPP PR PRN (14:45)
[2018-04-19] VITALS (25 sets, daily range): BP systolic 174–223; BP diastolic 74–91; O2SAT 99
[2018-04-19] MEDS: HEPARIN SOD (PORCINE) 5000 UNITS/ML VIAL SC SCH ×2 (05:13→15:11)
[2018-04-19] MEDS: PROPOFOL 1,000 MG in APPROPRIATE DILUENT 1 EA IV SCH ×3 (05:13→14:34)
[2018-04-19] MEDS: amLODIPine 10 MG TAB PO SCH (05:51)
[2018-04-19] MEDS: LABETALOL 200 MG TAB PO SCH ×2 (05:52→21:00)
[2018-04-19 06:06] LABS: ABG BASE EXCESS -3.6 (-2.0-2.0); ABG HCO3 20.3 MEQ/L (22.0-26.0); ABG O2 SATURATION 97.7 % (95.0-99.0); ABG PARTIAL PRESSURE CO2 32.5 mmHg (35.0-45.0); ABG PARTIAL PRESSURE O2 100.2 mmHg (75.0-100.0); ABG STANDARD HCO3 21.5 MEQ/L (22.0-26.0); ABG TOTAL CO2 21.3 MEQ/L (22.0-29.0); ABG pH (ARTERIAL) 7.413 UNITS (7.350-7.450)
--- NOTE | 2018-04-19 07:40 | REP ---
Clinical: Pulmonary edema. Comparison: 04/18/2018. Findings: Endotracheal tube 3 cm above the marichuy. Nasogastric tube courses below left hemidiaphragm. Double-lumen dialysis catheter with tip in the SVC. Cardiac silhouette is stable. Mild interstitial edema versus chronic interstitial changes along with trace left lower lobe atelectasis are again noted and similar in appearance to prior examination. No definite effusion. No pneumothorax. Skeletal structures stable. Impression: 1. Lines and tubes in satisfactory, stable position. 2. Cannot exclude chronic interstitial changes versus mild stable interstitial edema. No new acute pulmonary process appreciated. Electronically Signed by Rashawn Mcmahan MD 04/19/2018 07:32 A
[2018-04-19] MEDS: IPRATROPIUM 0.5MG/ALBUTEROL 2.5MG INH SOL UD 3ML (DUONEB)(J7620) NEB SCH ×4 (07:45→19:32)
--- NOTE | 2018-04-19 08:50 | CCN ---
DATE OF SERVICE: 04/19/2018 PULMONARY CRITICAL CARE NOTE: Ms. Persaud is seen in the intensive care unit (ICU). She is unchanged. She continues to be nonresponsive. She continues on ventilator. She is afebrile. Yesterday, she had an electroencephalogram (EEG) and results are currently pending. Dr. Alcaraz has been involved. The patient's is at bedside. He is considering withdrawing care and is just waiting for the EEG and further discussion with Dr. Alcaraz. At this point, he has elected not to pursue scheduled dialysis today and does not wish to have the patient have labs drawn today. He is interested in DO NOT RESUSCITATE and would like to sign the DO NOT RESUSCITATE. PHYSICAL EXAMINATION: The patient is on mechanical ventilation. She is nonresponsive. HEENT: Pupils are reactive to light bilaterally. Moist mucous membranes. Neck: Neck is supple. No tracheal deviation. Elevated jugular venous pulse (JVP). No cervical adenopathy. Trachea is midline. Cardiac: Regular rate and rhythm. S1-S2. Pulmonary: Breath sounds are equal bilaterally with no wheezes, rales or rhonchi. She is on mechanical ventilation. Abdomen: Soft, nontender. No bowel sounds are appreciated. The patient does appear to have an abdominal bruit. Extremities: No clubbing, cyanosis or edema. Chest x-ray is consistent with yesterday and does show increased vascular markings consistent with pulmonary edema. Blood gas pH 7.413, pCO2 32.5, pO2 100.2, HCO3 20.3. ASSESSMENT/PLAN: 1. Anoxic brain injury. The patient is being followed by neurology. EEG was performed yesterday and currently waiting on results. The patient had a CT of the head yesterday as well and was read as no intracranial lesions. The patient is on Keppra for seizure prophylaxis. The patient's is at bedside and states he is considering withdrawing care. At this point, he would like the patient to be DO NOT RESUSCITATE. 2. Acute respiratory failure requiring medical mechanical ventilation. She remains on mechanical ventilation as the patient's is determining whether or not he would like to withdraw medical care. We will continue to monitor. 3. Status post cardiac arrest. The patient did improve with dialysis. Nephrology is following. 4. Acute pulmonary edema. There was improvement with diuretics that were given initially. She is continuing to be monitored. 5. Hypertension. This has been difficult to manage. The patient does continue to exhibit elevated blood pressures. She is on several antihypertensives. In the face of her neurologic injury, her blood pressure may continue to have extreme fluctuations. 6. End-stage renal disease. Nephrology is following. The patient has been hemodialysis dependent. The patient's states that he was not interested in dialysis today as he is very likely considering withdrawal of care and is just waiting for the EEG and discussion with neurology. We will continue to support this patient as to however the patient's family wishes. For now, she will continue with mechanical ventilation until a decision is made by the family. LILIMA
--- NOTE | 2018-04-19 08:53 | CCN ---
DATE: This is an addendum to the critical care note already dictated by TEJAS Galaviz. I saw Brigitte Persaud at bedside this morning. Her expressed that he does not want dialysis at this point in time. There is no requested nutrition. He is waiting for the results of the EEG from yesterday and Dr. Alcaraz's formal opinion in order to help him make a decision whether or not to proceed with care. He states he is unlikely going to proceed with aggressive measures unless there is some significant improvement in the testing or in her neurologic status and so far there has not been. We discussed at length dialysis, blood work and nutrition. At this point in time, none of this will be performed unless there is a change in status. No CPR is desired and therefore the patient was made DO NOT RESUSCITATE this morning but will continue current support until evaluation has been completed. I answered all the 's questions at bedside today. He clearly understands the poor prognosis and is considering comfort measures only.
[2018-04-19] MEDS ORDERED: LOSARTAN 50 MG TAB PO SCH ×2 (09:00→21:00)
[2018-04-19] MEDS: **hydrALAZINE** 50 MG TAB PO SCH ×3 (09:44→21:00)
[2018-04-19] MEDS: PANTOPRAZOLE 40MG INJ (PROTONIX) (C9113) IV SCH (09:44)
[2018-04-19] MEDS: CHLORHEXIDINE GLUCONATE 0.12 % 15ML UDC (PERIDEX ORAL RINSE) MT SCH ×2 (11:02→21:00)
[2018-04-19] MEDS: levETIRAcetam INJection 500 MG in D5W MINI-BAG PLUS 100 ML IV SCH (12:33)
[2018-04-19] MEDS: MINOXIDIL 2.5 MG TAB PO SCH ×3 (12:34→21:00)
--- NOTE | 2018-04-19 16:35 | EEG ---
DATE OF PROCEDURE: 04/18/2018 REFERRING PHYSICIAN: Dr. Serafin Owen DIAGNOSIS: Anoxic brain injury, evaluate for encephalopathy and brain . EEG NUMBER: [id number] HISTORY: The patient is a 53-year-old woman with a history of end-stage renal disease, on hemodialysis, who was admitted at [facility] due to hypoxic ischemic encephalopathy and coma post cardiac arrest. This EEG was done to rule out epileptic potential, evaluate for encephalopathy and brain . The patient has been off sedation for the last 1 hour. She is also on Keppra. TECHNICAL DESCRIPTION: This digital EEG was recorded by 21 scalp, ear and two EKG electrodes and was reviewed in bipolar and referential montages following reformatting in 10-20 international electrode placement system. INTERPRETATION: The patient remained unresponsive throughout this EEG. The patient had off and on myoclonic jerks. This EEG was done after stopping sedation for 1 hour. Background rhythm consisted of very low voltage activity 5-10 microvolts in amplitude with intermittent 3-4 Hz delta activity. Hyperventilation could not be performed. Photic stimulation remained unremarkable. The patient continued to have myoclonic jerks of face, arms, head and neck. No change in background was noted during these myoclonic jerks. EKG revealed normal sinus rhythm. No sleep was recorded. No epileptiform abnormalities were seen. CONCLUSION: This EEG in an unresponsive patient on mechanical ventilation is severely abnormal due to presence of very low voltage background activity with severe slowing of background consistent with severe nonspecific diffuse cerebral dysfunction such as seen in encephalopathy due to multiple potential causes including hypoxic, ischemic, multifocal structural brain abnormalities, toxic, and metabolic causes. Excluding any effects of medications, this EEG likely denotes a guarded or poor prognosis and clinical outcome. Clinical correlation is recommended.
[2018-04-19] MEDS ORDERED: levETIRAcetam INJection 1,000 MG in D5W 100 ML IV SCH (18:45)
[2018-04-19] MEDS ORDERED: levETIRAcetam INJection 500 MG in D5W MINI-BAG PLUS 100 ML IV SCH ×2 (19:00→19:15)
[2018-04-19] MEDS ORDERED: MORPHINE 4 MG/ML 1ML VIAL/SYRINGE (J2270) IV PRN (20:15)
[2018-04-19] MEDS ORDERED: SCOPOLAMINE 1MG TRANSDERMAL PATCH TOP PRN (20:15)
[2018-04-19] MEDS ORDERED: ONDANSETRON 4MG/2ML VIAL (J2405) IV PRN (20:15)
[2018-04-19] MEDS ORDERED: LORazepam 2 MG/ML VIAL (J2060) IV PRN (20:15)
--- NOTE | 2018-04-19 20:45 | IPN ---
DATE: 04/19/2018 SUBJECTIVE: The patient is seen and examined this morning at the bedside in the intensive care unit. There is some discrepancy in terms of dialysis. The patient's was agreeable for dialysis treatment today as he has not yet made the final decision regarding withdrawal of care pending further discussion with neurology and review of most recent electroencephalogram (EEG). She is noted to be significantly hypertensive with systolic ranging from 180 to around 210 and losartan is added. She had an abbreviated 3-hour dialysis treatment with 1500 mL of fluid removal for a portion of which the was at the bedside. Review of systems - unable to obtain secondary to clinical condition. Temperature by urinary catheter 100.0, pulse 93, respiratory rate 22, blood pressure 185/77, saturating 99% on 30% FiO2. Intake yesterday 770, output yesterday was 518; most of it was gastric drainage. Weight on the bed scale today is not recorded. General: The patient is seen intubated and sedated. ETT and HARPREET are in place. There is a left-sided tunneled catheter in use. Jugular venous pressure is only mildly elevated today. Heart sounds are regular, S1, S2. Lungs show air entry bilaterally without crackles or rales. Abdomen is soft and nondistended. There is a peritoneal dialysis (PD) catheter in place on the right side. Genitourinary: Shows right a femoral line and a Bennett catheter. Extremities: Negative for edema. LABORATORY: Hemoglobin 9.8, platelets 132. Sodium 135, potassium 4.3, glucose 102. Chest x-ray 04/19/2018 has some mild interstitial edema. INPATIENT MEDICATIONS: I added losartan 50 mg by mouth twice a day. Remainder of medications are unchanged from prior. PROBLEMS: 1. Posthypoxic myoclonus and anoxic encephalopathy. Repeat CT head is noted. Family has not made a final decision yet on withdrawal of care pending further discussion with neurology, though is strongly leaning that way. She was made DO NOT RESUSCITATE (DNR) this morning. 2. End-stage renal disease, on hemodialysis in this patient with missed dialysis treatment on Wednesday, who subsequently had progressive respiratory distress and pulseless electrical arrest in the setting of pulmonary edema and now with anoxic encephalopathy. She is due for dialysis today. Her family has not made a final decision regarding withdrawal of care. They are agreeable for dialysis to continue at present. She is dialyzed today for an abbreviated treatment of 3 hours with 1500 mL removed and when family comes to the final decision, if they wish to stop dialysis and pursue comfort measures only, then nephrology will sign off. 3. Hypertension. Historically very difficult to manage, and this morning systolic has been ranging from 180 to 220. I have added losartan 50 mg by mouth twice a day.
[2018-04-19] MEDS: LORazepam 2 MG/ML VIAL (J2060) IV PRN (22:50)
[2018-04-19] MEDS: MORPHINE 4 MG/ML 1ML VIAL/SYRINGE (J2270) IV PRN (23:04)
[2018-04-20] MEDS: MORPHINE 4 MG/ML 1ML VIAL/SYRINGE (J2270) IV PRN ×6 (00:12→08:35)
[2018-04-20] MEDS: LORazepam 2 MG/ML VIAL (J2060) IV PRN ×6 (00:12→08:34)
--- NOTE | 2018-04-20 08:10 | CCN ---
DATE OF SERVICE: 04/20/2018 Ms. Persaud is seen in the ICU. Family has elected for comfort measures only and the patient was extubated last night. The patient is unresponsive but does not appear in any discomfort. Family is at bedside. PHYSICAL EXAMINATION: Oxygen saturations are between 50 at 70%. Her respiratory rate is quite slow around 8. General: She is unresponsive, does not appear to be in any distress. Neck is supple. There is mild JVD. Trachea is midline. No cervical lymphadenopathy. Cardiac: Regular rate and rhythm. S1, S2. Pulmonary: Respirations are slow. Breath sounds are clear to auscultation bilaterally. No wheezing, rales, rhonchi or crackles. No accessory muscle use. Abdomen: Soft. Extremities: No edema. ASSESSMENT/PLAN: Patient with anoxic brain injury. She is now comfort measures only. She was extubated last night. Prognosis is poor. Family is at bedside. She is being made comfortable and is on scopolamine, Ativan and morphine. Plan is to transfer the patient to the hospitalist service.
--- NOTE | 2018-04-20 09:14 | CCN ---
DATE: 04/20/2018 I was called last evening. The patient's family had requested extubation and comfort measures only. They do not want tube feedings, they do not want anything other than the goals of comfort for the patient. On rounds this morning, she remains alive but appears comfortable. Therefore, we will continue providing the patient comfort care, as requested by the family.
--- NOTE | 2018-04-20 10:53 | DSES ---
DATE OF ADMISSION: 04/16/2018 DATE OF DISCHARGE: 04/20/2018 PRIMARY CARE PHYSICIAN: Unknown. ATTENDING PHYSICIAN: Dr. Owen SPECIALISTS/CONSULTANTS INVOLVED: 1. Neurology, Dr. Alcaraz 2. Nephrology, Dr. Rob Grimm PROCEDURES PERFORMED DURING STAY: 1. Electroencephalogram on 04/17/2018 which revealed abnormal EEG due to the presence of generalized slowing and myoclonic jerks consistent with nonspecified diffuse cerebral dysfunction. 2. Right femoral triple lumen catheter placement on 04/16/2018. 3. Electroencephalogram on 04/18/2018 which revealed abnormal EEG due to very low voltage background activity with severe slowing of background consistent with severe nonspecific diffuse cerebral dysfunction. ADMITTING DIAGNOSES: 1. Status post cardiac arrest secondary to pulmonary edema. 2. Metabolic acidosis from renal failure and lactic acidosis. 3. Leukocytosis from cardiac arrest. 4. Coma with possible neurologic devastation. 5. Chronic obstructive pulmonary disease. DISCHARGE DIAGNOSES: 1. Anoxic brain injury. 2. Comfort measures only. COMPLICATIONS/CHIEF COMPLAINT: Acute respiratory failure with hypoxia; cardiac arrest. HISTORY OF PRESENT ILLNESS: Ms. Persaud is a 53-year-old female with known renal failure on hemodialysis who was in her usual state of health working and helping around the house. She developed a cough according to her mother and then had some increased shortness of breath and was not feeling well so she did not present for dialysis. Her shortness of breath became progressive despite her increasing her oxygen. The ambulance was summoned. EMS attempted CPAP, but patient arrested in the ambulance. She was found to be in pulseless electrical activity (PEA). Cardiopulmonary resuscitation was initiated. Return of spontaneous circulation (ROSC) was obtained. The patient was approximately unresponsive for 17-18 minutes. Intubated in the emergency room. Systolic blood pressures somewhat soft. No neurologic recovery noted. The patient noted to have monoclonal jerking and lip smacking. HOSPITAL COURSE: The patient was admitted and transferred to the intensive care unit for further management. Neurology and nephrology were consulted. The patient was provided with broad spectrum antibiotics and started the patient on propofol for sedation. Blood pressure was noted to be quite high with a systolic blood pressure in the 230s. The patient was started on multiple blood pressure lowering medications. She was found to have pulmonary edema on imaging. Keppra was added for seizure prophylaxis. EEG was obtained as reported above. Neurology recommended followup CT of the had and EEG. Nephrology recommended continuous veno-venous hemodiafiltration (CVVHDF). The patient was recently started on hemodialysis Wednesday, , Wednesday schedule, blood pressure management with antihypertensives and dialysis. Antibiotics were discontinued. Discussion with family to start tube feeds and placement of nothing by mouth (n.p.o.); however, patient's family elected to withhold these treatments as family leaning towards comfort measures depending on the updated CT of head and EEG reports. Decision was made to make the patient DO NOT RESUSCITATE. We did continue with hemodialysis until family made the decision yesterday on 04/19/2018 to withdraw care. The patient perished at 9:23 a.m. on 04/20/2018. DISCHARGE MEDICATIONS: None. ALLERGIES: Not applicable. PHYSICAL EXAMINATION ON DISCHARGE: Not applicable. VITAL SIGNS: Not applicable. LABORATORY DATA: Not applicable. IMAGIN. Portable chest x-ray on 04/16/2018 revealed endotracheal tube in correct placement. 2. Portable chest x-ray on with tubes and lines in correct location. 3. CT of head without contrast on 04/17/[address] evidence of diffuse cerebral edema secondary to anoxic brain injury. 4. Portable chest x-ray on 04/18/2018 revealed no acute cardiopulmonary process. 5. CT of head without contrast on 04/18/2018 revealed no intracranial lesion. 6. Portable chest x-ray on 04/19/2018 revealed lines and tubes in satisfactory position. PROGNOSIS: . ACTIVITY: Not applicable. DIET: Not applicable. DISCHARGE PLAN: Released via the morgue. DISPOSITION: . DISCHARGE INSTRUCTIONS: 1. Release body to [facility] [place] ITEMS TO FOLLOWUP ON OUTPATIENT: Not applicable. DISCHARGE CONDITION: . TIME SPENT ON DISCHARGE: Greater than 30 minutes. My faculty preceptor for this patient encounter was physically present during the encounter and was fully available. All aspects of the patient interview, examination, medical decision making process, and medical care plan development were reviewed and approved by the faculty preceptor. The faculty preceptor is aware and concurs with the plan as stated in the body of this note and will attest to such by his/her co-signature. I, Serafin Owen, was present and conducted rounds on this patient this morning. Agree with the above as outlined. LILIAM
== END 2018-04-20 09:23 | disposition expired | DRG 194 ==
LOC: M ED 16:26 → EDSEX 16:26 → EDBD 16:26 → M ED INP 17:46 → M ICU 18:48
PROVIDERS: ADMIT Internal Medicine Pulmonary Disease; ATTEND Internal Medicine Pulmonary Disease
PROC: 5A1945Z Respiratory Ventilation, 24-96 Consecutive Hours (ICD-10-PCS; principal; 2018-04-16)
DX: J81.0 Acute pulmonary edema (principal); J96.01 Acute respiratory failure with hypoxia; R57.9 Shock, unspecified; I46.8 Cardiac arrest due to other underlying condition; R40.20 Unspecified coma; I13.2 Hypertensive heart and chronic kidney disease with heart failure and with stage 5 chronic kidney disease, or end stage renal disease; N18.6 End stage renal disease; I27.20 Pulmonary hypertension, unspecified; G93.1 Anoxic brain damage, not elsewhere classified; J44.9 Chronic obstructive pulmonary disease, unspecified; E87.2 Acidosis; I70.1 Atherosclerosis of renal artery; I73.9 Peripheral vascular disease, unspecified; I15.0 Renovascular hypertension; Z91.19 Patient's noncompliance with other medical treatment and regimen; D72.829 Elevated white blood cell count, unspecified; Z66 Do not resuscitate; Z51.5 Encounter for palliative care; F32.9 Major depressive disorder, single episode, unspecified; I25.10 Atherosclerotic heart disease of native coronary artery without angina pectoris; Z79.899 Other long term (current) drug therapy; I50.32 Chronic diastolic (congestive) heart failure